=== PATIENT | female | born 1970 | race African-American/Black ===

== ENCOUNTER 2016-04-05 11:48 | Emergency (ER) | payer BC ==
[~2016-04-05 11:48] MED LIST: CYCL10TA2 PO; DIVA500T4 PO; FERR325T58 PO; HYDR-2666 PO; HYDR-971 PO; LAMO25TA5 PO; NAPR375T3 PO; NAPR500T PO; PANT40TA3 PO
[2016-04-05] MEDS ORDERED: IBUPROFEN 800 MG TABLET. PO ONE (13:00)
--- NOTE | 2016-04-05 13:07 | PHYS DOC ---
Past Medical History Past Medical History: Seizure Past Surgical History: Hysterectomy, Tubal ligation Alcohol Use: Rarely Drug Use: None Adult General Chief Complaint Chief Complaint: HYPERTENSION HPI HPI Patient is a 45 year old female who presents to the ED with multiple complaints. The patient went to work this morning and didn't feel well, they checked her blood pressure and it was 168/108 and they told her she needed to come get checked out. Patient states that this morning she had a headache on the left side of her head with some nausea, no vomiting. Her left side didn't feel right. She had tingling and numbness of her left hand and her left leg. She has pain in her left groin and down her left anterior thigh. She has had headaches exactly like this for quite a while, maybe a few months. She gets about 3 or 4 of them a week. This morning at work they gave HER-2 Tylenol which hasn't really helped. She was seen in the ED for this complaint in the past and was prescribed naproxen which also didn't really help. She works the 6 AM to 2 PM shift 5 days a week, sometimes works weekends and has a weekday off. Sometimes she eats breakfast before going to work and sometimes she doesn't. Sometimes she wakes up with a headache and sometimes it comes on later in the morning. There is nothing different or unusual about this particular headache today. Patient has no history of treated hypertension, she believes that for the last few months her blood pressure has been running a bit high although she has not been checking it regularly. 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 PCP Dr. Rees Review of Systems Review of Systems Constitutional: Denies fever or chills [] Eyes: Denies change in visual acuity, redness, or eye pain [] HENT: Denies nasal congestion or sore throat [] Respiratory: Denies cough or shortness of breath [] Cardiovascular: Denies chest pain GI: Nausea but no vomiting with headache as in history of present illness : Denies dysuria or hematuria [] Musculoskeletal: Diffuse aches and pains on the left side of her body as in history of present illness Integument: Denies rash or skin lesions [] Neurologic: As in history of present illness Current Medications Current Medications Current Medications Medications (Trade) Dose Ordered Sig/Columba Start Time Stop Time Status Last Admin Dose Admin Ibuprofen (Motrin) 800 mg 1X ONCE 04/05/16 13:00 04/05/16 13:01 Allergies Allergies Allergies Coded Allergies Type Severity Reaction Last Updated Verified No Known Drug Allergies 01/08/14 No Physical Exam Physical Exam Constitutional: Well developed, well nourished, no acute distress, non-toxic appearance. Watching TV, alert, mentating normally. HENT: Normocephalic, atraumatic, bilateral external ears normal, nose normal. [] Eyes: conjunctiva normal, no discharge. [] Neck: Normal range of motion, no stridor. [] Cardiovascular:Heart rate regular rhythm, no murmur [] Lungs & Thorax: Bilateral breath sounds clear to auscultation [] Skin: Warm, dry, no erythema, no rash. [] Extremities: No tenderness, no cyanosis, no clubbing, ROM intact, no edema. [] Neurologic: Alert and oriented X 3, normal motor function, normal sensory function, no focal deficits noted. No facial asymmetry. Speech normal. 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 Current Patient Data Vital Signs Vital Signs Date Time Temp Pulse Resp B/P Pulse Ox O2 Delivery O2 Flow Rate FiO2 04/05/16 11:59 98.5 93 18 157/91 100 Room Air 98.5 EKG EKG [] Radiology/Procedures Radiology/Procedures [] Course & Med Decision Making Course & Med Decision Making Pertinent Labs and Imaging studies reviewed. (See chart for details) 45-year-old female presents with a left-sided headache with some associated symptoms that make me think it might be a migraine. She has no lifelong history of migraines but has had these same headaches 3 or 4 times a week for several weeks or months now so I don't believe this is an emergency type of headache. I talked to her about trying "Excedrin Migraine" at the very onset of the headache as a trial. She really came today because she was found at work to have an elevated blood pressure and they made her come get checked out. After she rested in the ED her repeat blood pressure was 151/100. I discussed with her that that still a little elevated and if it stays elevated in and day out it does need to be treated but I will leave this to her primary care doctor. The patient has had trouble getting an appointment with her PCP so I called and made her an appointment for next Sunday which is her requested date since the day that she could have a ride from her daughter. [] Dragon Disclaimer Dragon Disclaimer This electronic medical record was generated, in whole or in part, using a voice recognition dictation system. Departure Departure Impression: Primary Impression: Elevated blood pressure reading with diagnosis of hypertension Additional Impression: Headache Disposition: 01 HOME, SELF-CARE Condition: STABLE Referrals: LYNN REES MD (PCP) Patient Instructions: General Headache Without Cause, [id number] Additional Instructions: As we discussed, and the description of your headache sounds like it might be a migraine. For this, I suggest that you try Excedrin Migraine while you are waiting to see your primary care doctor. Purchase Excedrin Migraine and keep it with you at all times. At the very onset of your headache, take 2 right away. It 's important to take them at the very onset of the headache. Drink plenty of fluids. Your blood pressure was high today but not so high that we need to immediately start treatment. As we discussed, every day that you work, check your blood pressure once or twice and keep a log to take with you when you see Dr. Rees next week. YOU have an appointment to see next April 12 at 1:00 PM. Please be 15 minutes early to that appointment. Make sure you take your blood pressure log with you. Problem Qualifiers ALFONSO GUADALUPE MD Apr 05, 2016 13:07
[2016-04-05 13:13] VITALS: BP 145/86
== END 2016-04-05 13:15 | disposition home or self-care (01) ==
LOC: ER 11:48
DX: I10 Essential (primary) hypertension (principal); R51 Headache; R20.2 Paresthesia of skin
CPT/HCPCS: 99282

== ENCOUNTER 2016-04-17 10:23 | Emergency (ER) | payer BC ==
[~2016-04-17] VITALS: Ht 160 cm; Wt 84.8 kg
[2016-04-17] MEDS ORDERED: ASPIRIN 81 MG TAB.CHEW PO ONE (12:30)
[2016-04-17] MEDS ORDERED: ONDANSETRON PF 4 MG/2 ML VIAL. IV ONE (12:30)
[2016-04-17] MEDS ORDERED: KETOROLAC 15 MG/ML VIAL. IV ONE (12:30)
--- NOTE | 2016-04-17 12:34 | ED.ADGEN ---
Past Medical History Past Medical History: Hypertension, Seizure Past Surgical History: Hysterectomy, Tubal ligation Alcohol Use: Rarely Drug Use: None Adult General Chief Complaint Chief Complaint: HEADACHE HPI HPI Patient is a 45 year old woman, with history of hypertension, seizure disorder which is controlled medication, migraine headaches, who presents to the emergency department with multiple complaints. Patient states that she initially was intending to go to outpatient radiology, but checked into the emergency department accidentally. She states that she was sent to get an x-ray of her hip by her primary care provider. She states however that she was experiencing chest pain and shortness of breath while at work today. 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 She states that her coat whole side hurts". Patient initially states is her right side, she states that her left side, and she has an x-ray prescription order for a left hip film with her from her primary care provider Dr. Avelar. Patient states that her headache that she is also complaining of is consistent with her previous migraines, located in her left side. She denies any injuries, any vision changes, states that she will occasionally have pain and numbness in her left upper extremity, and pain throughout her left lower extremity. No weakness. This is been going on for several months. She states that the chest pain that she spirits is located in her left chest, is sharp and stabbing in nature, and was evaluated previously by her primary care provider within EKG. She has not had a stress test or any blood work performed. states she also felt nauseous this morning. Recent travel or surgery, no history of DVT or PE, no swelling in her legs. She states that she began taking metoprolol recently for her blood pressure, currently her blood pressure is 139/ 83, she states that when she checked at the snf where she is employed, it was 150s over 100. Review of Systems Review of Systems Constitutional: Denies fever or chills. [] Eyes: Denies change in visual acuity. [] HENT: Denies nasal congestion or sore throat. [] Respiratory: Shortness breath, no cough. Cardiovascular: Chest pain, no edema. GI: Denies abdominal pain, nausea, vomiting, bloody stools or diarrhea. [] : Denies dysuria. [] Musculoskeletal: Denies back pain, complaining of left-sided pain. Integument: Denies rash. [] Neurologic: Denies headache, focal weakness or sensory changes. [] Endocrine: Denies polyuria or polydipsia. [] Lymphatic: Denies swollen glands. [] Psychiatric: Denies depression or anxiety. [] Current Medications Current Medications Current Medications Medications (Trade) Dose Ordered Sig/Columba Start Time Stop Time Status Last Admin Dose Admin Aspirin (Children'S Aspirin) 324 mg 1X ONCE 04/17/16 12:30 04/17/16 12:31 DC 04/17/16 12:53 324 MG Ketorolac Tromethamine (Toradol) 10 mg 1X ONCE 04/17/16 12:30 04/17/16 12:31 DC 04/17/16 12:52 10 MG Ondansetron HCl (Zofran) 4 mg 1X ONCE 04/17/16 12:30 04/17/16 12:31 DC 04/17/16 12:53 4 MG Allergies Allergies Allergies Coded Allergies Type Severity Reaction Last Updated Verified No Known Drug Allergies 01/08/14 No Physical Exam Physical Exam Constitutional: Well developed, well nourished, no acute distress, non-toxic appearance. [] HENT: Normocephalic, atraumatic, bilateral external ears normal, oropharynx moist, no oral exudates, nose normal. [] Eyes: PERRLA, EOMI, conjunctiva normal, no discharge. [] Neck: Normal range of motion, no tenderness, supple, no stridor. [] Cardiovascular:Heart rate regular rhythm, no murmur, S1, S2, rubs or gallops. Patient with reproduced chest wall tenderness across the anterior left chest wall. No bony point tenderness or crepitus. [] Lungs & Thorax: Bilateral breath sounds clear to auscultation, no wheezing, rhonchi, rales. [] Abdomen: Bowel sounds normal, soft, no rebound, rigidity, no guarding. No tenderness, no masses, no pulsatile masses. [] Skin: Warm, dry, no erythema, no rash. [] Back: No tenderness, no CVA tenderness. [] Extremities: No tenderness, no cyanosis, no clubbing, ROM intact, no edema. [] Negative Homans sign. Neurologic: Alert and oriented X 3, normal motor function, normal sensory function, no focal deficits noted. [] Psychologic: Affect normal, judgement normal, mood normal. [] Current Patient Data Vital Signs Vital Signs Date Time Temp Pulse Resp B/P Pulse Ox O2 Delivery O2 Flow Rate FiO2 04/17/16 13:20 82 20 137/90 96 04/17/16 10:35 98.2 Room Air 98.2 Lab Values Laboratory Tests Test 04/17/16 12:45 04/17/16 13:10 04/17/16 14:22 White Blood Count 14.5x10^3/uL (4.0-11.0) H Red Blood Count 4.99x10^6/uL (3.50-5.40) Hemoglobin 14.8g/dL (12.0-15.5) Hematocrit 44.6% (36.0-47.0) Mean Corpuscular Volume 89fL (79-100) Mean Corpuscular Hemoglobin 30pg (25-35) Mean Corpuscular Hemoglobin Concent 33g/dL (31-37) Red Cell Distribution Width 13.9% (11.5-14.5) Platelet Count 238x10^3/uL (140-400) Neutrophils (%) (Auto) 69% (31-73) Lymphocytes (%) (Auto) 22% (24-48) L Monocytes (%) (Auto) 7% (0-9) Eosinophils (%) (Auto) 1% (0-3) Basophils (%) (Auto) 1% (0-3) Neutrophils # (Auto) 10.0x10^3uL (1.8-7.7) H Lymphocytes # (Auto) 3.2x10^3/uL (1.0-4.8) Monocytes # (Auto) 1.1x10^3/uL (0.0-1.1) Eosinophils # (Auto) 0.1x10^3/uL (0.0-0.7) Basophils # (Auto) 0.1x10^3/uL (0.0-0.2) Sodium Level 142mmol/L (136-145) Potassium Level 4.5mmol/L (3.5-5.1) Chloride Level 105mmol/L (98-107) Carbon Dioxide Level 29mmol/L (21-32) Anion Gap 8 (6-14) Blood Urea Nitrogen 17mg/dL (7-20) Creatinine 1.0mg/dL (0.6-1.0) Estimated GFR (Cockcroft-Gault) 72.5 Glucose Level 85mg/dL (70-99) Calcium Level 10.3mg/dL (8.5-10.1) H Troponin I Quantitative < 0.017ng/mL (0.000-0.055) RH-Gxe-X-Type Natriuretic Peptide 62pg/mL (0-124) Lipase 194U/L (73-393) Urine Opiates Screen Neg (NEG) Urine Methadone Screen Neg (NEG) Urine Barbiturates Neg (NEG) Urine Phencyclidine Screen Neg (NEG) Urine Amphetamine/Methamphetamine Neg (NEG) Urine Benzodiazepines Screen Neg (NEG) Urine Cocaine Screen Neg (NEG) Urine Cannabinoids Screen Neg (NEG) Urine Ethyl Alcohol Neg (NEG) POC Troponin I 0.00ng/ml (<0.08) Laboratory Tests 04/17/16 12:45 Laboratory Tests 04/17/16 12:45 EKG EKG ECG: Sinus rhythm, heart rate 77 beats minute, axis deviation, QTC of 34, TX 18 , QRS of 78, no ST elevations or depressions, aside from left axis deviation, no other abnormalities identified. As interpreted by me. Radiology/Procedures Radiology/Procedures [] [facility] [address] [place] [address] IMAGING REPORT Signed PATIENT: PEDRO LUIS DELATORRE ACCOUNT: [id number] : 1970 LOCATION: ER AGE: 45 SEX: F EXAM STATUS: REG ER ORD. PHYSICIAN: MARISSA MCKEON DO REASON: CP PROCEDURE: PORTABLE CHEST 1V Indication: Chronic left chest pain. Hypertension. Technique: Upright portable chest radiograph was obtained. Comparison is from February 18, 2016. Findings: The lungs are clear. The cardiopulmonary silhouette is within normal limits. The bony structures are intact. Impression: No active pulmonary disease. DICTATED and SIGNED BY: GERALDINE CRAWLEY MD DATE: 04/17/16 1257 CC: MARISSA MCKEON DO; LYNN AVELAR MD ~ Course & Med Decision Making Course & Med Decision Making Pertinent Labs and Imaging studies reviewed. (See chart for details) Patient well-appearing the emergency department, initially there is some confusion, as the patient stated that she did intend to go to outpatient radiology but was not certain where to go, to receive the x-ray of her hip. However for discussion, she would like additional evaluation of her chest pain which she states has been coming and going over the past several months, and was evaluated by her primary care provider as stated, but she has not received any blood work, or additional cardiology follow-up aside from a EKG. She states that she did experience episode of increased work of breathing and chest pain this morning, along with hypertension when she checked her blood pressure at her place of employment. Is experiencing no symptoms at this time aside from her chronic left-sided pain as described. Patient received ECG, laboratory studies in the ED, including a repeat troponin at 3 hours, both were negative, patient's ECG showed left axis deviation but no other concerning findings, chest x-rays unremarkable as was the rest of her blood work. Evidence of acutely concerning findings, I do not believe the patient's symptoms are consistent with a concerning pulmonary or cardiac etiology. On reevaluation, patient's headache is resolved. I did discuss findings as above with her primary care provider, Dr. Avelar, and with the patient, all are in agreement with the plan for the patient to follow-up in the outpatient setting for additional evaluation, and to proceed to the outpatient radiology testing site for x-ray of her hip. Patient ambulating without difficulty upon exiting the ED with plan as stated. Dragon Disclaimer Dragon Disclaimer This electronic medical record was generated, in whole or in part, using a voice recognition dictation system. Departure Impression: Primary Impression: Chest pain Additional Impression: Headache Disposition: 01 HOME, SELF-CARE Condition: IMPROVED Problem Qualifiers MARISSA MCKEON DO Apr 17, 2016 12:34
--- NOTE | 2016-04-17 12:56 | RAD ---
Indication: Chronic left chest pain. Hypertension. Technique: Upright portable chest radiograph was obtained. Comparison is from February 18, 2016. Findings: The lungs are clear. The cardiopulmonary silhouette is within normal limits. The bony structures are intact. Impression: No active pulmonary disease.
[2016-04-17 13:20] VITALS: BP 137/90
[2016-04-17 13:27] LABS: BASO # 0.1 x10^3/uL (0.0-0.2); BASO % 1 % (0-3); EOS % 1 % (0-3); HEMATOCRIT 44.6 % (36.0-47.0); HEMOGLOBIN 14.8 g/dL (12.0-15.5); LYMPH # 3.2 x10^3/uL (1.0-4.8); LYMPH % 22 % (24-48); MEAN CORPUSCULAR HEMOGLOBIN 30 pg (25-35); MEAN CORPUSCULAR HGB CONC 33 g/dL (31-37); MEAN CORPUSCULAR VOLUME 89 fL (79-100); MONO % 7 % (0-9); NEUT % 69 % (31-73); PLATELET COUNT 238 x10^3/uL (140-400); RED BLOOD COUNT 4.99 x10^6/uL (3.50-5.40); RED CELL DISTRIBUTION WIDTH 13.9 % (11.5-14.5); WHITE BLOOD COUNT 14.5 x10^3/uL (4.0-11.0)
[2016-04-17 13:28] LABS: CALCIUM 10.3 mg/dL (8.5-10.1); GFR 72.5; POTASSIUM 4.5 mmol/L (3.5-5.1)
[2016-04-17 13:31] LABS: BARBITURATES NEG (NEG); BENZODIAZEPINES NEG (NEG); CANNABINOIDS NEG (NEG); COCAINE NEG (NEG); METHADONE NEG (NEG); OPIATES NEG (NEG); PHENCYCLIDINE NEG (NEG)
[2016-04-17 13:32] LABS: ETHANOL, URINE NEG (NEG)
--- NOTE | 2016-04-17 13:36 | EKG ---
[facility] [address] [place] [address] Test Date: 2016-04-17 Test Time: 12:45:31 Pat Name: PEDRO LUIS DELATORRE Department: Room: Gender: F Senior Advisory: : 1970 Requested By: MARISSA MCKEON Order Number: [id number] Reading MD: Chani Craft Measurements Intervals Banks Rate: 77 P: 5 GA: 158 QRS: -6 QRSD: 78 T: 0 QT: 338 QTc: 384 Interpretive Statements SINUS RHYTHM LEFTWARD AXIS OTHERWISE NORMAL ECG RI6.01 Unconfirmed report Compared to ECG 02/18/2016 14:40:00 Left-axis deviation now present Electronically Signed On 04-19-2016 10:56:42 CDT by Chani Craft
== END 2016-04-17 14:57 | disposition home or self-care (01) ==
LOC: ER 10:23
DX: R07.89 Other chest pain (principal); R51 Headache; R06.02 Shortness of breath; R20.0 Anesthesia of skin; R11.0 Nausea; M79.605 Pain in left leg; I10 Essential (primary) hypertension; G40.909 Epilepsy, unspecified, not intractable, without status epilepticus; G43.909 Migraine, unspecified, not intractable, without status migrainosus
CPT/HCPCS: 36415; 71010; 80048; 83690; 83880; 84484; 85027; 93005; 96374; 96375; 99285; G0481; J1885; J2405

== ENCOUNTER → 2016-04-17 | Outpatient (CLI) | payer BC ==
[2016-04-17 13:20] VITALS: BP 137/90
--- NOTE | 2016-04-17 16:18 | RAD ---
Lumbar spine, 5 views, 04/17/2016: History: Low back and hip pain The lateral view is suboptimal due to obliquity of patient positioning. No fracture or dislocation is identified. There are minimal scattered marginal spurs. There are mild to moderate degenerative changes involving facet joints bilaterally in the lower lumbar spine. There is no evidence of spondylolysis. The paraspinous soft tissues are unremarkable. IMPRESSION: 1. Mild to moderate degenerative change as described above. 2. No acute abnormality is detected.
--- NOTE | 2016-04-17 16:18 | RAD ---
Left hip, 2 views, 04/17/2016: History: Low back and hip pain No fracture or dislocation is identified. There is minimal narrowing of the left hip joint with minimal marginal spurring. The periarticular soft tissues are unremarkable. IMPRESSION: 1. Minimal degenerative change at the left hip joint. 2. No acute abnormality is detected.
== END | disposition home or self-care (01) ==
LOC: RAD 15:09
PROVIDERS: ATTEND Internal Medicine
DX: M47.896 Other spondylosis, lumbar region (principal); M25.552 Pain in left hip
CPT/HCPCS: 72110; 73502

== ENCOUNTER 2016-12-21 11:05 | Emergency (ER) | payer BC ==
[~2016-12-21] VITALS: Ht 160 cm; Wt 78.5 kg
[~2016-12-21 11:05] MED LIST changes: -HYDR-2666 PO; +HYDR-2758 PO; +NAPR-683 PO; +NAPR-695 PO; -NAPR375T3 PO; -NAPR500T PO
--- NOTE | 2016-12-21 11:55 | PHYS DOC ---
Past Medical History Past Medical History: Hypertension, Seizure Past Surgical History: Hysterectomy, Tubal ligation Alcohol Use: Rarely Drug Use: None Adult General Chief Complaint Chief Complaint: DIZZY/LIGHT HEADED HPI HPI Patient is a 46 year old female to the emergency department stating she has been having elevated blood pressures for the last 2 days. She states that she has also been having some numbness and tingling into bilateral arms. Patient does state that she has out of her blood pressure medicine since October. She does have a primary care physician which she can follow-up with however she tried to call them yesterday and today for blood pressure medicine and was unable to get a hold of anybody. Patient states her blood pressure was 149/102. She denies any chest pain or discomfort. She does state that she has some left upper back pain and discomfort. She denies dizziness however she states that that was yesterday. States that her son has for a cardiac reason in the early age of 21. Review of Systems Review of Systems Constitutional: Denies fever or chills [] Eyes: Denies change in visual acuity, redness, or eye pain [] HENT: Denies nasal congestion or sore throat [] Respiratory: Denies cough or shortness of breath [] Cardiovascular: No additional information not addressed in HPI [] GI: Denies abdominal pain, nausea, vomiting, bloody stools or diarrhea [] : Denies dysuria or hematuria [] Musculoskeletal: upper left back pain denies joint pain [] Integument: Denies rash or skin lesions [] Neurologic: Denies headache, focal weakness. C/o numbness and tingling in bilateral hands. Endocrine: Denies polyuria or polydipsia [] All other systems were reviewed and found to be within normal limits, except as documented in this note. Current Medications Current Medications Current Medications Medications (Trade) Dose Ordered Sig/[place] Start Time Stop Time Status Last Admin Dose Admin Metoprolol Succinate (Toprol Xl) 25 mg 1X ONCE 12/21/16 12:15 12/21/16 12:16 DC 12/21/16 12:28 50 MG Allergies Allergies Allergies Coded Allergies Type Severity Reaction Last Updated Verified No Known Drug Allergies 01/08/14 No Physical Exam Physical Exam Constitutional: Well developed, well nourished, no acute distress, non-toxic appearance. [] HENT: Normocephalic, atraumatic, bilateral external ears normal, oropharynx moist, no oral exudates, nose normal. [] Eyes: PERRLA, EOMI, conjunctiva normal, no discharge. [] Neck: Normal range of motion, no tenderness, supple, no stridor. [] Cardiovascular:Heart rate regular rhythm, no murmur [] Lungs & Thorax: Bilateral breath sounds clear to auscultation [] [] Skin: Warm, dry, no erythema, no rash. [] Back: left upper back tenderness noted on palpation Extremities: No tenderness, no cyanosis, no clubbing, ROM intact, no edema. [] Neurologic: Alert and oriented X 3, normal motor function, normal sensory function, no focal deficits noted. Psychologic: Affect normal, judgement normal, mood normal. [] Current Patient Data Vital Signs Vital Signs Date Time Temp Pulse Resp B/P (MAP) Pulse Ox O2 Delivery O2 Flow Rate FiO2 12/21/16 12:29 91 18 98 12/21/16 12:28 122/87 12/21/16 11:21 98.1 Room Air 98.1 Lab Values Laboratory Tests Test 12/21/16 11:40 12/21/16 11:50 White Blood Count 12.9 x10^3/uL (4.0-11.0) H Red Blood Count 4.63 x10^6/uL (3.50-5.40) Hemoglobin 13.6 g/dL (12.0-15.5) Hematocrit 41.7 % (36.0-47.0) Mean Corpuscular Volume 90 fL (79-100) Mean Corpuscular Hemoglobin 29 pg (25-35) Mean Corpuscular Hemoglobin Concent 33 g/dL (31-37) Red Cell Distribution Width 14.3 % (11.5-14.5) Platelet Count 219 x10^3/uL (140-400) Neutrophils (%) (Auto) 63 % (31-73) Lymphocytes (%) (Auto) 29 % (24-48) Monocytes (%) (Auto) 6 % (0-9) Eosinophils (%) (Auto) 1 % (0-3) Basophils (%) (Auto) 1 % (0-3) Neutrophils # (Auto) 8.2 x10^3uL (1.8-7.7) H Lymphocytes # (Auto) 3.8 x10^3/uL (1.0-4.8) Monocytes # (Auto) 0.7 x10^3/uL (0.0-1.1) Eosinophils # (Auto) 0.1 x10^3/uL (0.0-0.7) Basophils # (Auto) 0.2 x10^3/uL (0.0-0.2) Sodium Level 140 mmol/L (136-145) Potassium Level 3.7 mmol/L (3.5-5.1) Chloride Level 104 mmol/L (98-107) Carbon Dioxide Level 26 mmol/L (21-32) Anion Gap 10 (6-14) Blood Urea Nitrogen 13 mg/dL (7-20) Creatinine 0.8 mg/dL (0.6-1.0) Estimated GFR (Cockcroft-Gault) 93.4 BUN/Creatinine Ratio 16 (6-20) Glucose Level 76 mg/dL (70-99) Calcium Level 9.6 mg/dL (8.5-10.1) Total Bilirubin 0.2 mg/dL (0.2-1.0) Aspartate Amino Transferase (AST) 15 U/L (15-37) Alanine Aminotransferase (ALT) 14 U/L (14-59) Alkaline Phosphatase 49 U/L (46-116) Troponin I Quantitative < 0.017 ng/mL (0.000-0.055) Total Protein 7.7 g/dL (6.4-8.2) Albumin 3.2 g/dL (3.4-5.0) L Albumin/Globulin Ratio 0.7 (1.0-1.7) L Urine Collection Type Void Urine Color Yellow Urine Clarity Clear Urine pH 7.0 Urine Specific [place] 1.020 Urine Protein Negative mg/dL (NEG-TRACE) Urine Glucose (UA) Negative mg/dL (NEG) Urine Ketones (Stick) Negative mg/dL (NEG) Urine Blood Negative (NEG) Urine Nitrite Negative (NEG) Urine Bilirubin Negative (NEG) Urine Urobilinogen Dipstick 0.2 mg/dL (0.2 mg/dL) Urine Leukocyte Esterase Trace (NEG) Urine RBC Occ /HPF (0-2) Urine WBC 1-4 /HPF (0-4) Urine Squamous Epithelial Cells Mod /LPF Urine Bacteria Few /HPF (0-FEW) Laboratory Tests 12/21/16 11:40 Laboratory Tests 12/21/16 11:40 EKG EKG EKG was completed on 1125 heart rate 83 sinus rhythm noted no STEMI noted per Dr Parikh[] Radiology/Procedures Radiology/Procedures [][facility] [address] [place] [address] IMAGING REPORT Signed PATIENT: PEDRO LUIS DELATORRE ACCOUNT: [id number] : 1970 LOCATION: ER AGE: 46 SEX: F EXAM STATUS: REG ER ORD. PHYSICIAN: MARCY RIDLEY APRN REASON: dizziness with elevated BP not taking medications PROCEDURE: CT HEAD WO CONTRAST CT of the head without contrast, 12/21/2016: History: Dizziness, hypertension The ventricles are within normal limits in size. There is no shift of the midline structures. There is no evidence of acute intracranial hemorrhage or mass effect. IMPRESSION: No significant abnormality is detected. PQRS Compliance Statement: One or more of the following individualized dose reduction techniques were utilized for this examination: 1. Automated exposure control 2. Adjustment of the mA and/or kV according to patient size 3. Use of iterative reconstruction technique DICTATED and SIGNED BY: RUBY PATEL MD DATE: 12/21/16 8284 CC: MARCY RIDLEY APRN; LYNN AVELAR MD; NON,STAFF ~ Course & Med Decision Making Course & Med Decision Making Pertinent Labs and Imaging studies reviewed. (See chart for details) EKG was within normal limits. CT scan of the head was normal. CBC, CMP, urinalysis was within normal limits. Patient was provided with metoprolol 25 mg here in the emergency department. Her blood pressure is currently 122/89. Patient will be discharged home with a prescription for metoprolol. She was instructed to follow-up with her primary care physician Dr. Man. Patient will be provided with a work noted for 1 day. I've spoken with the patient and/or caregivers. I've explained the patient's condition, diagnosis and treatment plan based on information available to me at this time. I've answered the patient's and/or caregivers questions and addressed any concerns. The patient and/or caregivers have a good understanding the patient's diagnosis, condition and treatment plan as can be expected at this point. Vital signs have been stabilized. The patient's condition is stable for discharge from the emergency department. The patient will pursue further outpatient evaluation with her primary care provider or other designated consulting physician as outlined in the discharge instructions. Patient and/or caregivers are agreeable to this plan of care and follow-up instructions have been explained in detail. The patient and/or caregivers have received these instructions in written format and expressed understanding of these discharge instructions. The patient and her caregivers are aware that if any significant change in condition or worsening of symptoms should prompt him to immediately return to this of the closest emergency department. If an emergent department is not readily available I would encourage him to call 911. [] Dragon Disclaimer Dragon Disclaimer This electronic medical record was generated, in whole or in part, using a voice recognition dictation system. Departure Departure Impression: Primary Impression: Elevated blood pressure reading with diagnosis of hypertension Disposition: HOME, SELF-CARE Condition: STABLE Referrals: LYNN AVELAR MD (PCP) Patient Instructions: Hypertension Additional Instructions: Activity as tolerated Medication as prescribed Tylenol or Ibuprofen for pain Followup with primary care provider in 3-5 days Return to emergency department as needed for signs and symptoms that become worse. Scripts Metoprolol Succinate (METOPROLOL SUCCINATE ( XL )) 25 Mg Tab.er.24h 25 MG PO DAILY for FOR HYPERTENSION, #30 TAB 0 Refills Prov: MARCY RIDLEY APRN 12/21/16 MARCY RIDLEY APRN Dec 21, 2016 11:55
[2016-12-21] MEDS ORDERED: METOPROLOL SUCC 24HR ER 25 MG TAB.ER.24H. PO ONE (12:00)
[2016-12-21 12:02] LABS: BASO # 0.2 x10^3/uL (0.0-0.2); BASO % 1 % (0-3); EOS % 1 % (0-3); HEMATOCRIT 41.7 % (36.0-47.0); HEMOGLOBIN 13.6 g/dL (12.0-15.5); LYMPH # 3.8 x10^3/uL (1.0-4.8); LYMPH % 29 % (24-48); MEAN CORPUSCULAR HEMOGLOBIN 29 pg (25-35); MEAN CORPUSCULAR HGB CONC 33 g/dL (31-37); MEAN CORPUSCULAR VOLUME 90 fL (79-100); MONO % 6 % (0-9); NEUT % 63 % (31-73); PLATELET COUNT 219 x10^3/uL (140-400); RED BLOOD COUNT 4.63 x10^6/uL (3.50-5.40); RED CELL DISTRIBUTION WIDTH 14.3 % (11.5-14.5); WHITE BLOOD COUNT 12.9 x10^3/uL (4.0-11.0)
[2016-12-21 12:04] LABS: BILIRUBIN,URINE NEGATIVE (NEG); GLUCOSE,URINE NEGATIVE (NEG); NITRITE,URINE NEGATIVE (NEG); PROTEIN,URINE NEGATIVE (NEG-TRACE); UROBILINOGEN,URINE 0.2 mg/dL (0.2 mg/dL)
[2016-12-21 12:13] LABS: SQUAMOUS EPITHELIAL CELL,UR MOD /LPF
[2016-12-21 12:14] LABS: CALCIUM 9.6 mg/dL (8.5-10.1); CREATININE 0.8 mg/dL (0.6-1.0); GFR 93.4; POTASSIUM 3.7 mmol/L (3.5-5.1)
[2016-12-21 12:14] LABS: BACTERIA,URINE FEW /HPF (0-FEW); RBC,URINE OCC /HPF (0-2)
[2016-12-21] MEDS ORDERED: METOPROLOL SUCC 24HR ER 50 MG TAB.ER.24H. PO ONE (12:15)
[2016-12-21 12:20] LABS: ALBUMIN 3.2 g/dL (3.4-5.0); ALBUMIN/GLOBULIN RATIO 0.7 (1.0-1.7); TOTAL BILIRUBIN 0.2 mg/dL (0.2-1.0); TOTAL PROTEIN 7.7 g/dL (6.4-8.2)
--- NOTE | 2016-12-21 12:56 | EKG ---
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
--- NOTE | 2016-12-21 13:13 | RAD ---
CT of the head without contrast, 12/21/2016: History: Dizziness, hypertension The ventricles are within normal limits in size. There is no shift of the midline structures. There is no evidence of acute intracranial hemorrhage or mass effect. IMPRESSION: No significant abnormality is detected. PQRS Compliance Statement: One or more of the following individualized dose reduction techniques were utilized for this examination: 1. Automated exposure control 2. Adjustment of the mA and/or kV according to patient size 3. Use of iterative reconstruction technique
[2016-12-21] MEDS ORDERED: METO-239 PO (13:34)
[2016-12-21] MEDS ORDERED: ACETAMINOPHEN 325 MG TABLET. PO ONE (13:45)
[2016-12-21 14:03] VITALS: BP 134/85
== END 2016-12-21 14:05 | disposition home or self-care (01) ==
LOC: ER 11:05
DX: I10 Essential (primary) hypertension (principal); M54.6 Pain in thoracic spine
CPT/HCPCS: 36415; 70450; 80053; 81001; 84484; 85025; 87086; 93005; 99285-25

== ENCOUNTER 2017-09-07 10:02 | Emergency (ER) | payer BC ==
[2017-09-07 11:00] LABS: ADD MAN DIFF? NO
[2017-09-07 11:09] LABS: BASO # 0.2 x10^3/uL (0.0-0.2); BASO % 1 % (0-3); EOS # 0.1 x10^3/uL (0.0-0.7); EOS % 1 % (0-3); HEMATOCRIT 40.6 % (36.0-47.0); HEMOGLOBIN 13.6 g/dL (12.0-15.5); LYMPH # 2.7 x10^3/uL (1.0-4.8); LYMPH % 21 % (24-48); MEAN CORPUSCULAR HEMOGLOBIN 29 pg (25-35); MEAN CORPUSCULAR HGB CONC 33 g/dL (31-37); MEAN CORPUSCULAR VOLUME 87 fL (79-100); MONO # 0.8 x10^3/uL (0.0-1.1); MONO % 6 % (0-9); NEUT # 9.4 x10^3uL (1.8-7.7); NEUT % 71 % (31-73); PLATELET COUNT 220 x10^3/uL (140-400); RED BLOOD COUNT 4.65 x10^6/uL (3.50-5.40); RED CELL DISTRIBUTION WIDTH 14.8 % (11.5-14.5); WHITE BLOOD COUNT 13.2 x10^3/uL (4.0-11.0)
[2017-09-07] MEDS: KETOROLAC 30 MG/ML INJ. IV (11:26)
[2017-09-07 12:02] LABS: ANION GAP 6 (6-14); BLOOD UREA NITROGEN 16 mg/dL (7-20); CALCIUM 9.7 mg/dL (8.5-10.1); CARBON DIOXIDE 27 mmol/L (21-32); CHLORIDE 104 mmol/L (98-107); CREATININE 0.9 mg/dL (0.6-1.0); GFR 81.2; GLUCOSE 80 mg/dL (70-99); POTASSIUM 4.7 mmol/L (3.5-5.1); SODIUM 137 mmol/L (136-145)
[2017-09-07 12:03] LABS: TROPONINI < 0.017 ng/mL (0.000-0.055)
== END 2017-09-07 13:02 | disposition home or self-care (01) ==
LOC: ER 10:02
DX: R07.89 Other chest pain (principal); G89.29 Other chronic pain; M25.511 Pain in right shoulder; I10 Essential (primary) hypertension; Z90.710 Acquired absence of both cervix and uterus; Z98.51 Tubal ligation status
CPT/HCPCS: 36415; 71046; 73030; 80048; 84484; 85025; 93005; 96374; 99285-25; J1885

== ENCOUNTER 2017-10-21 13:45 | Emergency (ER) | payer BC ==
[~2017-10-21] VITALS: Ht 160 cm; Wt 81.6 kg
[~2017-10-21 13:45] MED LIST changes: +METO-239 PO
[2017-10-21 15:08] VITALS: BP 153/88
--- NOTE | 2017-10-21 15:41 | PHYS DOC ---
Past Medical History Past Medical History: No Pertinent History Additional Past Medical Histor: CHRONIC PAIN Past Surgical History: No Surgical History Alcohol Use: Occasionally Drug Use: None Adult General Chief Complaint Chief Complaint: Neck Pain HPI HPI Patient is a 47 year old with right shoulder pain for one year and a rash to bilateral arms. Patient reports increased pain with range of motion. right hand dominant. Denies any numbness, tingling, or injury Review of Systems Review of Systems Constitutional: Denies fever or chills [] Eyes: Denies change in visual acuity, redness, or eye pain [] HENT: Denies nasal congestion or sore throat [] Respiratory: Denies cough or shortness of breath [] Cardiovascular: No additional information not addressed in HPI [] GI: Denies abdominal pain, nausea, vomiting, bloody stools or diarrhea [] : Denies dysuria or hematuria [] Musculoskeletal: Denies back pain or joint pain [] Integument: Denies rash or skin lesions [] Neurologic: Denies headache, focal weakness or sensory changes [] Endocrine: Denies polyuria or polydipsia [] All other systems were reviewed and found to be within normal limits, except as documented in this note. Allergies Allergies Allergies Coded Allergies Type Severity Reaction Last Updated Verified No Known Drug Allergies 01/08/14 No Physical Exam Physical Exam Constitutional: Well developed, well nourished, no acute distress, non-toxic appearance. [] HENT: Normocephalic, atraumatic, bilateral external ears normal, oropharynx moist, no oral exudates, nose normal. [] Eyes: PERRLA, EOMI, conjunctiva normal, no discharge. [] Neck: Normal range of motion, no tenderness, supple, no stridor. [] Cardiovascular:Heart rate regular rhythm, no murmur [] Lungs & Thorax: Bilateral breath sounds clear to auscultation [] Abdomen: Bowel sounds normal, soft, no tenderness, no masses, no pulsatile masses. [] Skin: Warm, dry, no erythema, no rash. [] Back: No tenderness, no CVA tenderness. [] Extremities: No tenderness, no cyanosis, no clubbing, ROM intact, no edema. [] Neurologic: Alert and oriented X 3, normal motor function, normal sensory function, no focal deficits noted. [] Psychologic: Affect normal, judgement normal, mood normal. [] Current Patient Data Vital Signs Vital Signs Date Time Temp Pulse Resp B/P (MAP) Pulse Ox O2 Delivery O2 Flow Rate FiO2 10/21/17 15:08 98.4 84 20 153/88 (109) Room Air 98.4 EKG EKG [] Radiology/Procedures Radiology/Procedures [] Course & Med Decision Making Course & Med Decision Making Pertinent Labs and Imaging studies reviewed. (See chart for details) [] Dragon Disclaimer Dragon Disclaimer This electronic medical record was generated, in whole or in part, using a voice recognition dictation system. Departure Departure Impression: Primary Impression: Right shoulder pain Additional Impression: Contact dermatitis Disposition: HOME, SELF-CARE Condition: STABLE Referrals: LYNN AVELAR MD (PCP) JING GARDNER MD Patient Instructions: Contact Dermatitis, [id number], Shoulder Pain Additional Instructions: Wear sling for comfort. Follow up with ortho. Also follow up with primary in 1- 2 days. Take medications as prescribed. Return if problems or concerns. Scripts Prednisone (PREDNISONE) 50 Mg Tablet 50 MG PO DAILY for 5 Days, #5 TAB Prov: RISA FRANKLIN APRN 10/21/17 Diclofenac Sodium (VOLTAREN-XR) 100 Mg Tab.er.24h 1 TAB PO DAILY for prn pain, #20 TAB 0 Refills Prov: RISA FRANKLIN APRN 10/21/17 Problem Qualifiers Primary Impression: Right shoulder pain Chronicity: chronic Qualified Codes: M25.511 - Pain in right shoulder; G89.29 - Other chronic pain Additional Impression: Contact dermatitis Contact dermatitis type: unspecified Contact dermatitis trigger: unspecified trigger Qualified Codes: L25.9 - Unspecified contact dermatitis, unspecified cause RISA FRANKLIN APRN Oct 21, 2017 15:41
[2017-10-21] MEDS ORDERED: DICL100T PO (15:49)
[2017-10-21] MEDS ORDERED: PRED50TA PO (15:49)
== END 2017-10-21 16:20 | disposition home or self-care (01) ==
LOC: ER 13:45
DX: L25.9 Unspecified contact dermatitis, unspecified cause (principal); M25.511 Pain in right shoulder; G89.29 Other chronic pain
CPT/HCPCS: 99283

== ENCOUNTER 2018-03-29 14:07 | Emergency (ER) | payer BC ==
[~2018-03-29] VITALS: Ht 160 cm; Wt 79.8 kg
[~2018-03-29 14:07] MED LIST changes: +DICL100T PO; -HYDR-2758 PO; +HYDR-2761 PO; +HYDR-3164 PO; -HYDR-971 PO; +PRED50TA PO
[2018-03-29] MEDS ORDERED: PROCHLORPERAZINE 10 MG/2 ML VIAL. IV ONE (14:30)
[2018-03-29] MEDS ORDERED: KETOROLAC 15 MG/ML VIAL. IV ONE (14:30)
[2018-03-29] MEDS ORDERED: diphenhydrAMINE 50 MG/ML VIAL IVP ONE (14:30)
--- NOTE | 2018-03-29 14:42 | EKG ---
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 Electronically Signed On 04-01-2018 10:49:34 BALLISTICS EXPERT by Timmy Rojas
[2018-03-29 14:53] LABS: BASO # 0.1 x10^3/uL (0.0-0.2); BASO % 1 % (0-3); EOS % 0 % (0-3); HEMATOCRIT 40.8 % (36.0-47.0); HEMOGLOBIN 13.2 g/dL (12.0-15.5); LYMPH # 2.4 x10^3/uL (1.0-4.8); LYMPH % 21 % (24-48); MEAN CORPUSCULAR HEMOGLOBIN 28 pg (25-35); MEAN CORPUSCULAR HGB CONC 32 g/dL (31-37); MEAN CORPUSCULAR VOLUME 87 fL (79-100); MONO # 0.8 x10^3/uL (0.0-1.1); MONO % 7 % (0-9); NEUT # 7.9 x10^3uL (1.8-7.7); NEUT % 70 % (31-73); PLATELET COUNT 227 x10^3/uL (140-400); RED BLOOD COUNT 4.71 x10^6/uL (3.50-5.40); WHITE BLOOD COUNT 11.4 x10^3/uL (4.0-11.0)
[2018-03-29 15:07] LABS: CALCIUM 9.6 mg/dL (8.5-10.1); CREATININE 1.1 mg/dL (0.6-1.0); GFR 64.4; POTASSIUM 3.8 mmol/L (3.5-5.1)
--- NOTE | 2018-03-29 15:11 | PHYS DOC ---
Past Medical History Past Medical History: Hypertension, Migraines, Seizure Additional Past Medical Histor: CHRONIC PAIN Past Surgical History: Hysterectomy, Tubal ligation Alcohol Use: Occasionally Drug Use: Marijuana Adult General Chief Complaint Chief Complaint: HEADACHE HPI HPI Patient is a 47 year old female presents the emergency room with chief complaint of headache described as intermittent throbbing front of the head she' s had a history of migraines this feels similar to that in addition she is worried because she has numbness as well as shooting pain from her shoulder down to her hand on the left check she hasn't on long-standing basis but it seems worse over the last 3 weeks she says she is working with her primary care doctor. She also was no halitosis can take because her daughter has to be at work by 5:00. Patient denies chest pain or shortness of breath no fever no recent trauma or injury he just the pain and the numbness. Trying agents at home with minimal relief Review of Systems Review of Systems Constitutional: Denies fever or chills [] Eyes: Denies change in visual acuity, redness, or eye pain [] HENT: Denies nasal congestion or sore throat [] Respiratory: Denies cough or shortness of breath [] Cardiovascular: No additional information not addressed in HPI [] GI: Denies abdominal pain, nausea, vomiting, bloody stools or diarrhea [] : Denies dysuria or hematuria [] Musculoskeletal: Integument: Denies rash or skin lesions [] Neurologic: Endocrine: Denies polyuria or polydipsia [] All other systems were reviewed and found to be within normal limits, except as documented in this note. Current Medications Current Medications Current Medications Medications (Trade) Dose Ordered Sig/[place] Start Time Stop Time Status Last Admin Dose Admin Diphenhydramine HCl (Benadryl) 25 mg 1X ONCE 03/29/18 14:30 03/29/18 14:31 DC 03/29/18 14:53 25 MG Ketorolac Tromethamine (Toradol 15mg Vial) 15 mg 1X ONCE 03/29/18 14:30 03/29/18 14:31 DC 03/29/18 14:53 15 MG Prochlorperazine Edisylate (Compazine) 10 mg 1X ONCE 03/29/18 14:30 03/29/18 14:31 DC 03/29/18 14:53 10 MG Allergies Allergies Allergies Coded Allergies Type Severity Reaction Last Updated Verified No Known Drug Allergies 01/08/14 No Physical Exam Physical Exam Constitutional: Well developed, well nourished, no acute distress, non-toxic appearance. [] HENT: Normocephalic, atraumatic, bilateral external ears normal, oropharynx moist, no oral exudates, nose normal. [] Eyes: PERRLA, EOMI, conjunctiva normal, no discharge. [] Neck: Normal range of motion, no tenderness, supple, no stridor. [] Cardiovascular:Heart rate regular rhythm, no murmur [] Lungs & Thorax: Bilateral breath sounds clear to auscultation [] Abdomen: Bowel sounds normal, soft, no tenderness, no masses, no pulsatile masses. [] Skin: Warm, dry, no erythema, no rash. [] Back: There is reproducible trapezius tenderness noted to the left shoulder back area. Extremities: No tenderness, no cyanosis, no clubbing, ROM intact, no edema. [] Neurologic: Alert and oriented X 3, normal motor function, normal sensory function, no focal deficits noted. []Subtle breakaway weakness noted in the left upper extremity however 5 out of 5 with resistance testing while distracted Sensation is slightly reduced to light touch in the left hand. Finger-nose- finger intact Psychologic: Affect normal, judgement normal, mood normal. [] Current Patient Data Vital Signs Vital Signs Date Time Temp Pulse Resp B/P (MAP) Pulse Ox O2 Delivery O2 Flow Rate FiO2 03/29/18 15:18 78 98 03/29/18 14: 98.3 16 138/85 (102) Room Air 98.3 Lab Values Laboratory Tests Test 03/29/18 14:18 03/29/18 14:28 03/29/18 14:43 POC Urine HCG, Qualitative Hcg negative (Negative) Glucose (Fingerstick) 92 mg/dL (70-99) White Blood Count 11.4 x10^3/uL (4.0-11.0) H Red Blood Count 4.71 x10^6/uL (3.50-5.40) Hemoglobin 13.2 g/dL (12.0-15.5) Hematocrit 40.8 % (36.0-47.0) Mean Corpuscular Volume 87 fL (79-100) Mean Corpuscular Hemoglobin 28 pg (25-35) Mean Corpuscular Hemoglobin Concent 32 g/dL (31-37) Red Cell Distribution Width 14.0 % (11.5-14.5) Platelet Count 227 x10^3/uL (140-400) Neutrophils (%) (Auto) 70 % (31-73) Lymphocytes (%) (Auto) 21 % (24-48) L Monocytes (%) (Auto) 7 % (0-9) Eosinophils (%) (Auto) 0 % (0-3) Basophils (%) (Auto) 1 % (0-3) Neutrophils # (Auto) 7.9 x10^3uL (1.8-7.7) H Lymphocytes # (Auto) 2.4 x10^3/uL (1.0-4.8) Monocytes # (Auto) 0.8 x10^3/uL (0.0-1.1) Eosinophils # (Auto) 0.0 x10^3/uL (0.0-0.7) Basophils # (Auto) 0.1 x10^3/uL (0.0-0.2) Sodium Level 144 mmol/L (136-145) Potassium Level 3.8 mmol/L (3.5-5.1) Chloride Level 106 mmol/L (98-107) Carbon Dioxide Level 29 mmol/L (21-32) Anion Gap 9 (6-14) Blood Urea Nitrogen 14 mg/dL (7-20) Creatinine 1.1 mg/dL (0.6-1.0) H Estimated GFR (Cockcroft-Gault) 64.4 BUN/Creatinine Ratio 13 (6-20) Glucose Level 98 mg/dL (70-99) Calcium Level 9.6 mg/dL (8.5-10.1) Total Bilirubin 0.3 mg/dL (0.2-1.0) Aspartate Amino Transferase (AST) 12 U/L (15-37) L Alanine Aminotransferase (ALT) 11 U/L (14-59) L Alkaline Phosphatase 42 U/L (46-116) L Troponin I Quantitative < 0.017 ng/mL (0.000-0.055) Total Protein 7.3 g/dL (6.4-8.2) Albumin 3.1 g/dL (3.4-5.0) L Albumin/Globulin Ratio 0.7 (1.0-1.7) L Laboratory Tests 03/29/18 14:43 Laboratory Tests 03/29/18 14:43 EKG EKG [] Interpretation Time: EKG shows a probable sinus rhythm poor baseline rate 77 no STEMI seen intervals are normal interpreted by me the time of encounter Radiology/Procedures Radiology/Procedures [] Course & Med Decision Making Course & Med Decision Making Pertinent Labs and Imaging studies reviewed. (See chart for details) []47-year-old female presenting with 3 weeks of headache as well as some pain and numbness in her left arm and hand neurologically intact she has reproducible tenderness at the trapezius seems like radiculopathy she has a history of migraine she had a negative head CT in 2017 she has no objective neurologic findings she has no trauma I don't think we need repeat imaging at this time. It was better in the emergency trauma to the above treatment we did a screening EKG troponin and basic lab work out an abundance of caution this was normal Dragon Disclaimer Dragon Disclaimer This electronic medical record was generated, in whole or in part, using a voice recognition dictation system. Departure Departure Impression: Primary Impression: Headache Additional Impression: Radiculopathy Disposition: HOME, SELF-CARE Condition: STABLE Referrals: LYNN AVELAR MD (PCP) Problem Qualifiers LENA MCKEON MD Mar 29, 2018 15:11
[2018-03-29 15:13] LABS: ALBUMIN 3.1 g/dL (3.4-5.0); ALBUMIN/GLOBULIN RATIO 0.7 (1.0-1.7); TOTAL BILIRUBIN 0.3 mg/dL (0.2-1.0); TOTAL PROTEIN 7.3 g/dL (6.4-8.2)
[2018-03-29 15:18] VITALS: BP 137/80
== END 2018-03-29 15:43 | disposition home or self-care (01) ==
LOC: ER 14:07
DX: G43.909 Migraine, unspecified, not intractable, without status migrainosus (principal); M54.12 Radiculopathy, cervical region; I10 Essential (primary) hypertension; G89.29 Other chronic pain; Z90.710 Acquired absence of both cervix and uterus; Z98.51 Tubal ligation status
CPT/HCPCS: 36415; 80053; 81025; 82962; 84484; 85025; 93005; 96374; 96375; 99284; J0780; J1200; J1885

== ENCOUNTER → 2018-08-22 | Outpatient (CLI) | payer BC ==
[~2018-08-22] MED LIST changes: -PANT40TA3 PO; +PANT40TA77 PO
--- NOTE | 2018-08-22 10:47 | RAD ---
DATE: 08/22/2018. EXAM: MAMMO AGUSTIN SCREENING BILATERAL HISTORY: Routine screening. COMPARISON: Previous mammogram from 2014. This study was interpreted with the benefit of Computerized Aided Detection (CAD). FINDINGS: Breast Density: HETERO The breast parenchyma Is heterogeneously dense, which could reduce sensitivity of mammography. Breast parenchyma level C. The skin and nipples are within normal limits. There is a 5 mm round nodule in the right breast at 7:00 position approximately 5.5 cm from the nipple on cc view agustin image 10 of 45. 6 mm rounded asymmetry seen in the retroareolar left breast just posterior to the nipple best seen on image 21 of 42 of cc agustin view. No suspicious calcifications. IMPRESSION: Bilateral breast abnormalities as described above. BI-RADS CATEGORY: 0 INCOMPLETE: NEED ADDITIONAL IMAGING EVAULATION AND/OR PRIOR MAMMOGRAMS FOR COMPARISON RECOMMENDED FOLLOW-UP: ADD ADDITIONAL IMAGING. Focused Ultrasound of the bilateral breasts in the areas as described above. PQRS compliance statement: Patient information was entered into a reminder system with a target due date for the next mammogram. Mammography is a sensitive method for finding small breast cancers, but it does not detect them all and is not a substitute for careful clinical examination. A negative mammogram does not negate a clinically suspicious finding and should not result in delay in biopsying a clinically suspicious abnormality. "Our facility is accredited by the [employer] Mammography Program."
--- NOTE | 2018-08-22 11:25 | RAD ---
3 view cervical spine 08/22/2018 12:00 AM Indication: Cervical pain Comparison: None available Findings: Some straightening of the cervical spine is seen most likely relating to patient positioning or muscle spasm. No evidence of acute fracture or alignment abnormality. Vertebral body heights are preserved. Mild disc space narrowing and anterior bridging osteophytes are seen at C5-C6. The atlantoaxial articulation remains intact. No acute soft tissue changes are seen. Impression: Mild degenerative changes of the cervical spine without evidence of acute osseous abnormality. Electronically signed by: Jeffry Christie MD (08/22/2018 11:22 AM) [id number]
== END | disposition home or self-care (01) ==
LOC: MAMMO 09:29
PROVIDERS: ATTEND Internal Medicine
DX: Z12.31 Encounter for screening mammogram for malignant neoplasm of breast (principal); N63.13 Unspecified lump in the right breast, lower outer quadrant; M47.22 Other spondylosis with radiculopathy, cervical region; M25.78 Osteophyte, vertebrae; M48.02 Spinal stenosis, cervical region
CPT/HCPCS: 72040; 77063; 77067

== ENCOUNTER → 2018-09-16 | Outpatient (CLI) | payer BC ==
--- NOTE | 2018-09-17 10:17 | RAD ---
DATE: 09/16/2018 9:06 AM EXAM: DIGITAL DIAGNOSTIC RT, BREAST BILATERAL HISTORY: Further evaluation of abnormalities on prior screening mammogram, bilaterally COMPARISON: 08/22/2018, 07/10/2013 Bilateral spot compression CC and full field ML views of both breasts were obtained This study was interpreted with the benefit of Computerized Aided Detection (CAD). FINDINGS: Breast Density: HETERO The breast parenchyma Is heterogeneously dense, which could reduce sensitivity of mammography. Breast parenchyma level C The abnormalities in both breasts were slightly less conspicuous but likely seen on the spot compression and full field ML views. Therefore these abnormalities were further evaluated with ultrasound. ULTRASOUND FINDINGS: Targeted ultrasound of the bilateral breasts 7:00 position, 4 cm from the right nipple: A hypoechoic irregular mass is present measuring 0.8 x 0.2 x 0.8 cm. The left breast in the periareolar region was imaged with ultrasound. No suspicious mass was identified. IMPRESSION: Right breast mass for which biopsy is recommended. Left breast lesion was seen on mammogram only, follow-up is recommended. BI-RADS CATEGORY: 4 SUSPICIOUS ABNORMALITY- BIOPSY SHOULD BE CONSIDERED RECOMMENDED FOLLOW-UP: BIO BIOPSY RECOMMENDED right breast biopsy is recommended. 6 month follow-up 3-D CC and MLO mammographic views of the left breast are recommended. PQRS compliance statement: Patient information was entered into a reminder system with a target due date for the next mammogram. Mammography is a sensitive method for finding small breast cancers, but it does not detect them all and is not a substitute for careful clinical examination. A negative mammogram does not negate a clinically suspicious finding and should not result in delay in biopsying a clinically suspicious abnormality. "Our facility is accredited by the [employer] Mammography Program." MTDD
== END | disposition home or self-care (01) ==
LOC: MAMMO 09:01
PROVIDERS: ATTEND Internal Medicine
DX: N63.13 Unspecified lump in the right breast, lower outer quadrant (principal)
CPT/HCPCS: 76641; 77065; 77066

== ENCOUNTER 2018-11-08 08:18 | Day surgery (SDC) | payer BC ==
[~2018-11-08] VITALS: Ht 160 cm; Wt 79.4 kg
[~2018-11-08 08:18] MED LIST changes: +ESCITALOPRAM OX10 MG PO; +HYDROmorphone 2 MG/ML VIAL IV PRN; +IV RINGERS,LACTATED 1000ML 1,000 ML IV SCH; +LIDOCAINE 1% PF 2 ML VIAL. ID PRN; +LOSA-73 PO; +METHYLENE BLUE 0.5% 10ml AMPULE. IJ ONE; +MORPHINE SULFATE 2 MG/ML VIAL. IV PRN; +ONDANSETRON PF 4 MG/2 ML VIAL. IV PRN; +PROCHLORPERAZINE 10 MG/2 ML VIAL. IV PRN; +fentaNYL PF VIAL 100 MCG/2 ML VIAL IV PRN
[2018-11-08 08:22] LABS: BASO # 0.1 x10^3/uL (0.0-0.2); BASO % 1 % (0-3); EOS # 0.1 x10^3/uL (0.0-0.7); EOS % 1 % (0-3); HEMATOCRIT 38.8 % (36.0-47.0); LYMPH # 2.3 x10^3/uL (1.0-4.8); LYMPH % 22 % (24-48); MEAN CORPUSCULAR HEMOGLOBIN 29 pg (25-35); MEAN CORPUSCULAR HGB CONC 34 g/dL (31-37); MEAN CORPUSCULAR VOLUME 87 fL (79-100); MONO # 0.9 x10^3/uL (0.0-1.1); MONO % 8 % (0-9); NEUT # 7.2 x10^3/uL (1.8-7.7); NEUT % 68 % (31-73); PLATELET COUNT 229 x10^3/uL (140-400); RED BLOOD COUNT 4.45 x10^6/uL (3.50-5.40); RED CELL DISTRIBUTION WIDTH 14.7 % (11.5-14.5); WHITE BLOOD COUNT 10.5 x10^3/uL (4.0-11.0)
[2018-11-08 08:29] LABS: CALCIUM 9.3 mg/dL (8.5-10.1); CREATININE 0.9 mg/dL (0.6-1.0); GFR 80.9; POTASSIUM 3.7 mmol/L (3.5-5.1)
[2018-11-08 08:32] LABS: PROTHROMBIN TIME PATIENT 12.1 SEC (11.7-14.0)
[2018-11-08 08:35] LABS: ALBUMIN 3.2 g/dL (3.4-5.0); ALBUMIN/GLOBULIN RATIO 0.7 (1.0-1.7); TOTAL BILIRUBIN 0.2 mg/dL (0.2-1.0); TOTAL PROTEIN 7.5 g/dL (6.4-8.2)
[2018-11-08] MEDS ORDERED: LIDOCAINE 2% PF 5 ML VIAL. ONE (08:50)
[2018-11-08] MEDS ORDERED: MIDAZOLAM HCL/PF 2 MG/2 ML VIAL. ONE (08:50)
[2018-11-08] MEDS ORDERED: KETOROLAC 30 MG/ML VIAL. ONE (08:50)
[2018-11-08] MEDS ORDERED: PROPOFOL 20 ML IV ONE (08:50)
[2018-11-08] MEDS ORDERED: fentaNYL PF VIAL 100 MCG/2 ML VIAL ONE (08:50)
[2018-11-08] MEDS ORDERED: DEXAMETHASONE SOD PHOS 4 MG/ML VIAL ONE (08:50)
[2018-11-08] MEDS ORDERED: ONDANSETRON PF 4 MG/2 ML VIAL. ONE (08:50)
[2018-11-08] MEDS ORDERED: METHYLENE BLUE 0.5% 10ml AMPULE. ONE (09:04)
--- NOTE | 2018-11-08 11:40 | PDOC ---
SURGICAL PROGRESS NOTE Subjective No change in dictated history and physical. Vital Signs Vital Signs Date Time Temp Pulse Resp B/P (MAP) Pulse Ox O2 Delivery O2 Flow Rate FiO2 11/08/18 11:26 96.8 65 14 123/80 100 Simple Mask 8 96.8 Labs Laboratory Tests Test 11/08/18 08:10 White Blood Count 10.5 x10^3/uL (4.0-11.0) Red Blood Count 4.45 x10^6/uL (3.50-5.40) Hemoglobin 13.0 g/dL (12.0-15.5) Hematocrit 38.8 % (36.0-47.0) Mean Corpuscular Volume 87 fL (79-100) Mean Corpuscular Hemoglobin 29 pg (25-35) Mean Corpuscular Hemoglobin Concent 34 g/dL (31-37) Red Cell Distribution Width 14.7 % (11.5-14.5) Platelet Count 229 x10^3/uL (140-400) Neutrophils (%) (Auto) 68 % (31-73) Lymphocytes (%) (Auto) 22 % (24-48) Monocytes (%) (Auto) 8 % (0-9) Eosinophils (%) (Auto) 1 % (0-3) Basophils (%) (Auto) 1 % (0-3) Neutrophils # (Auto) 7.2 x10^3/uL (1.8-7.7) Lymphocytes # (Auto) 2.3 x10^3/uL (1.0-4.8) Monocytes # (Auto) 0.9 x10^3/uL (0.0-1.1) Eosinophils # (Auto) 0.1 x10^3/uL (0.0-0.7) Basophils # (Auto) 0.1 x10^3/uL (0.0-0.2) Prothrombin Time 12.1 SEC (11.7-14.0) Prothromb Time International Ratio 0.9 (0.8-1.1) Sodium Level 139 mmol/L (136-145) Potassium Level 3.7 mmol/L (3.5-5.1) Chloride Level 106 mmol/L (98-107) Carbon Dioxide Level 28 mmol/L (21-32) Anion Gap 5 (6-14) Blood Urea Nitrogen 15 mg/dL (7-20) Creatinine 0.9 mg/dL (0.6-1.0) Estimated GFR (Cockcroft-Gault) 80.9 BUN/Creatinine Ratio 17 (6-20) Glucose Level 84 mg/dL (70-99) Calcium Level 9.3 mg/dL (8.5-10.1) Total Bilirubin 0.2 mg/dL (0.2-1.0) Aspartate Amino Transf (AST/SGOT) 13 U/L (15-37) Alanine Aminotransferase (ALT/SGPT) 9 U/L (14-59) Alkaline Phosphatase 50 U/L (46-116) Total Protein 7.5 g/dL (6.4-8.2) Albumin 3.2 g/dL (3.4-5.0) Albumin/Globulin Ratio 0.7 (1.0-1.7) Amylase Level 71 U/L (25-115) Laboratory Tests Test 11/08/18 08:10 White Blood Count 10.5 x10^3/uL (4.0-11.0) Red Blood Count 4.45 x10^6/uL (3.50-5.40) Hemoglobin 13.0 g/dL (12.0-15.5) Hematocrit 38.8 % (36.0-47.0) Mean Corpuscular Volume 87 fL (79-100) Mean Corpuscular Hemoglobin 29 pg (25-35) Mean Corpuscular Hemoglobin Concent 34 g/dL (31-37) Red Cell Distribution Width 14.7 % (11.5-14.5) Platelet Count 229 x10^3/uL (140-400) Neutrophils (%) (Auto) 68 % (31-73) Lymphocytes (%) (Auto) 22 % (24-48) Monocytes (%) (Auto) 8 % (0-9) Eosinophils (%) (Auto) 1 % (0-3) Basophils (%) (Auto) 1 % (0-3) Neutrophils # (Auto) 7.2 x10^3/uL (1.8-7.7) Lymphocytes # (Auto) 2.3 x10^3/uL (1.0-4.8) Monocytes # (Auto) 0.9 x10^3/uL (0.0-1.1) Eosinophils # (Auto) 0.1 x10^3/uL (0.0-0.7) Basophils # (Auto) 0.1 x10^3/uL (0.0-0.2) Prothrombin Time 12.1 SEC (11.7-14.0) Prothromb Time International Ratio 0.9 (0.8-1.1) Sodium Level 139 mmol/L (136-145) Potassium Level 3.7 mmol/L (3.5-5.1) Chloride Level 106 mmol/L (98-107) Carbon Dioxide Level 28 mmol/L (21-32) Anion Gap 5 (6-14) Blood Urea Nitrogen 15 mg/dL (7-20) Creatinine 0.9 mg/dL (0.6-1.0) Estimated GFR (Cockcroft-Gault) 80.9 BUN/Creatinine Ratio 17 (6-20) Glucose Level 84 mg/dL (70-99) Calcium Level 9.3 mg/dL (8.5-10.1) Total Bilirubin 0.2 mg/dL (0.2-1.0) Aspartate Amino Transf (AST/SGOT) 13 U/L (15-37) Alanine Aminotransferase (ALT/SGPT) 9 U/L (14-59) Alkaline Phosphatase 50 U/L (46-116) Total Protein 7.5 g/dL (6.4-8.2) Albumin 3.2 g/dL (3.4-5.0) Albumin/Globulin Ratio 0.7 (1.0-1.7) Amylase Level 71 U/L (25-115) SEEMA CARVAJAL MD Nov 08, 2018 11:40
--- NOTE | 2018-11-08 11:41 | DISCH ---
DISCHARGE INSTRUCTIONS Condition on Discharge Condition on Discharge: Stable Activity After Discharge Activity Instructions for Disc: Activity as tolerated, Avoid exertion Bathing Instructions: Shower-keep dressing dry Lifting Instructions after Dis: Do not lift >10 pounds Exercise Instruction after Dis: Progress as tolerated Driving Instructions after Dis: No driving for 2 weeks Weight Bearing Status after Di: As tolerated Diet after Discharge Diet after Discharge: Regular Wound Incision Care Wound/Incision Care: Ice to area for comfort, May get incision wet, Other, see below Other wound/incision instructi: change dressin in 1-2 days or prn then put guaze inside bra without tape. Checks after Discharge Checks after discharge: Check your Temp as needed Contacting the DRSay after DC Call your doctor for: If your condition worsens Follow-Up Follow up with: Dr Carvajal in 3 weeks SEEMA CARVAJAL MD Nov 08, 2018 11:41
--- NOTE | 2018-11-08 11:44 | PDOC ---
SURGICAL PROGRESS NOTE Subjective OP Note: Surgeon.....................................Carvajal Pre-op Diagnosis........................Right breast mass Post-op Diagnosis......................Right breast mass Anesthesia................................General Procedure..................................Excision of right breast mass via needle localization Drains........................................None Fluids........................................See anesthesia sheet Blood loss..................................10cc Condition....................................Satisfactory Vital Signs Vital Signs Date Time Temp Pulse Resp B/P (MAP) Pulse Ox O2 Delivery O2 Flow Rate FiO2 11/08/18 11:26 96.8 65 14 123/80 100 Simple Mask 8 96.8 Labs Laboratory Tests Test 11/08/18 08:10 White Blood Count 10.5 x10^3/uL (4.0-11.0) Red Blood Count 4.45 x10^6/uL (3.50-5.40) Hemoglobin 13.0 g/dL (12.0-15.5) Hematocrit 38.8 % (36.0-47.0) Mean Corpuscular Volume 87 fL (79-100) Mean Corpuscular Hemoglobin 29 pg (25-35) Mean Corpuscular Hemoglobin Concent 34 g/dL (31-37) Red Cell Distribution Width 14.7 % (11.5-14.5) Platelet Count 229 x10^3/uL (140-400) Neutrophils (%) (Auto) 68 % (31-73) Lymphocytes (%) (Auto) 22 % (24-48) Monocytes (%) (Auto) 8 % (0-9) Eosinophils (%) (Auto) 1 % (0-3) Basophils (%) (Auto) 1 % (0-3) Neutrophils # (Auto) 7.2 x10^3/uL (1.8-7.7) Lymphocytes # (Auto) 2.3 x10^3/uL (1.0-4.8) Monocytes # (Auto) 0.9 x10^3/uL (0.0-1.1) Eosinophils # (Auto) 0.1 x10^3/uL (0.0-0.7) Basophils # (Auto) 0.1 x10^3/uL (0.0-0.2) Prothrombin Time 12.1 SEC (11.7-14.0) Prothromb Time International Ratio 0.9 (0.8-1.1) Sodium Level 139 mmol/L (136-145) Potassium Level 3.7 mmol/L (3.5-5.1) Chloride Level 106 mmol/L (98-107) Carbon Dioxide Level 28 mmol/L (21-32) Anion Gap 5 (6-14) Blood Urea Nitrogen 15 mg/dL (7-20) Creatinine 0.9 mg/dL (0.6-1.0) Estimated GFR (Cockcroft-Gault) 80.9 BUN/Creatinine Ratio 17 (6-20) Glucose Level 84 mg/dL (70-99) Calcium Level 9.3 mg/dL (8.5-10.1) Total Bilirubin 0.2 mg/dL (0.2-1.0) Aspartate Amino Transf (AST/SGOT) 13 U/L (15-37) Alanine Aminotransferase (ALT/SGPT) 9 U/L (14-59) Alkaline Phosphatase 50 U/L (46-116) Total Protein 7.5 g/dL (6.4-8.2) Albumin 3.2 g/dL (3.4-5.0) Albumin/Globulin Ratio 0.7 (1.0-1.7) Amylase Level 71 U/L (25-115) Laboratory Tests Test 11/08/18 08:10 White Blood Count 10.5 x10^3/uL (4.0-11.0) Red Blood Count 4.45 x10^6/uL (3.50-5.40) Hemoglobin 13.0 g/dL (12.0-15.5) Hematocrit 38.8 % (36.0-47.0) Mean Corpuscular Volume 87 fL (79-100) Mean Corpuscular Hemoglobin 29 pg (25-35) Mean Corpuscular Hemoglobin Concent 34 g/dL (31-37) Red Cell Distribution Width 14.7 % (11.5-14.5) Platelet Count 229 x10^3/uL (140-400) Neutrophils (%) (Auto) 68 % (31-73) Lymphocytes (%) (Auto) 22 % (24-48) Monocytes (%) (Auto) 8 % (0-9) Eosinophils (%) (Auto) 1 % (0-3) Basophils (%) (Auto) 1 % (0-3) Neutrophils # (Auto) 7.2 x10^3/uL (1.8-7.7) Lymphocytes # (Auto) 2.3 x10^3/uL (1.0-4.8) Monocytes # (Auto) 0.9 x10^3/uL (0.0-1.1) Eosinophils # (Auto) 0.1 x10^3/uL (0.0-0.7) Basophils # (Auto) 0.1 x10^3/uL (0.0-0.2) Prothrombin Time 12.1 SEC (11.7-14.0) Prothromb Time International Ratio 0.9 (0.8-1.1) Sodium Level 139 mmol/L (136-145) Potassium Level 3.7 mmol/L (3.5-5.1) Chloride Level 106 mmol/L (98-107) Carbon Dioxide Level 28 mmol/L (21-32) Anion Gap 5 (6-14) Blood Urea Nitrogen 15 mg/dL (7-20) Creatinine 0.9 mg/dL (0.6-1.0) Estimated GFR (Cockcroft-Gault) 80.9 BUN/Creatinine Ratio 17 (6-20) Glucose Level 84 mg/dL (70-99) Calcium Level 9.3 mg/dL (8.5-10.1) Total Bilirubin 0.2 mg/dL (0.2-1.0) Aspartate Amino Transf (AST/SGOT) 13 U/L (15-37) Alanine Aminotransferase (ALT/SGPT) 9 U/L (14-59) Alkaline Phosphatase 50 U/L (46-116) Total Protein 7.5 g/dL (6.4-8.2) Albumin 3.2 g/dL (3.4-5.0) Albumin/Globulin Ratio 0.7 (1.0-1.7) Amylase Level 71 U/L (25-115) SEEAM CARVAJAL MD Nov 08, 2018 11:44
[2018-11-08] MEDS ORDERED: HYDROcodone/APAP 5/325MG 1 TAB TABLET PO ONE (11:45)
[2018-11-08 11:58] VITALS: BP 119/69
--- NOTE | 2018-11-08 20:12 | RAD ---
Examination: US GUID NDL PLACE/ASPI/BX History: Right breast mass Comparison/Correlation: 09/16/2018 right breast ultrasound Findings: Risks and benefits of ultrasound-guided needle localization were discussed with the patient and informed consent was obtained. Cleansing with ChloraPrep was performed. Sterile drapes placed. Sterile probe cover utilized. Sterile gel utilized. Approximately 7 cc 1 percent lidocaine utilized. 7 cm needle wire combination was introduced into the right breast via a lateral approach into the mass lesion located 4 cm from the nipple at the 7:00 region. 0.1 cc of methylene blue was injected medial to the mass of interest. The wire was then deployed into the mass and the needle was removed. Impression: Successful wire localization of the right breast mass. Methylene blue injection. Electronically signed by: Santiago Tran MD (11/08/2018 8:09 PM) [facility]
--- NOTE | 2018-11-08 20:14 | RAD ---
DATE: 11/08/2018 EXAM: DIGITAL DIAGNOSTIC RT HISTORY: Right breast mass wire localized COMPARISON: 09/16/2018 This study was interpreted with the benefit of Computerized Aided Detection (CAD). Breast Density: HETERO The breast parenchyma is heterogenously dense, which could reduce sensitivity of mammography. Breast parenchyma level C. FINDINGS: Wire is noted within the right breast at the central retroareolar aspect approximately 4 cm from the nipple. IMPRESSION: Successful wire placement. BI-RADS CATEGORY: 4 SUSPICIOUS ABNORMALITY- BIOPSY SHOULD BE CONSIDERED RECOMMENDED FOLLOW-UP: SURG SURGICAL CONSULTATION PQRS compliance statement: Patient information was entered into a reminder system with a target due date for the next mammogram. Mammography is a sensitive method for finding small breast cancers, but it does not detect them all and is not a substitute for careful clinical examination. A negative mammogram does not negate a clinically suspicious finding and should not result in delay in biopsying a clinically suspicious abnormality. "Our facility is accredited by the [employer] Mammography Program."
--- NOTE | 2018-11-08 20:15 | RAD ---
Examination: TISSUE SPECIMEN MAMMOGRAM History: Right breast mass Comparison/Correlation: None Findings: Specimen radiograph was performed. The wire is identified within the specimen. The mass lesion is not definitely delineated but this finding is primarily seen on ultrasound imaging. Impression: Successful excision of the wire with surrounding breast tissue.
--- NOTE | 2018-11-09 01:46 | OP ---
DATE OF SURGERY: SURGEON: Mario Carvajal MD PREOPERATIVE DIAGNOSIS: Mass of the right breast found by sonography and mammography. POSTOPERATIVE DIAGNOSIS: Mass of the right breast found by sonography and mammography. ANESTHESIA: General. PROCEDURE: Excision of mass, right breast lower outer quadrant via needle localization. TECHNIQUE: With the patient's entire consent, understanding of the procedure, we had general anesthesia and she was properly prepped and draped in routine fashion. The incision was made, as the guidewire was in the lower outer quadrant of the right breast. In the lower portion, we then made an incision following the skin lines about an inch or so in length with a #15 blade and went through the skin with this. We then delivered the guidewire into the wound and then slowly grasping the guidewire and the tissue around it with a clamp, we used Gill retractors and then Hannah to hold the tissues away as we slowly dissected the tissue around the guidewire. Methylene blue had been placed and we did see it. We went completely around the guidewire and passed the methylene blue that had been injected to get the mass. The mass appeared to be at the end of the guidewire and you could palpate it. We then having removed this, small bleeders were cauterized and cautery was used for much of the dissection. The specimen was sent to the lab and the radiologist did say that he thought the lesion in question was in the specimen though he could not do mammograms, it showed up better on sonography. We then inspected the wound and the deeper structures and breast tissue was approximated in layers using 4-0 Vicryl, 3-0 Vicryl was used for the very deepest of the tissues. We then closed the skin using a subcuticular 5-0 Vicryl. Sterile dressing was applied and the procedure was terminated. Blood loss was probably less than 10 mL. No drains were used. Fluids given can be obtained from the anesthesia sheet. Condition of the patient is satisfactory as she has returned to the recovery room. MARIO CARVAJAL MD DR: SONU/bart JOB#: [id number] / [id number] ZONIA
--- NOTE | 2018-11-14 09:07 | PATHOLOGY ---
[facility] Accession Number: [id number] . 01 Material submitted: . breast - RIGHT BREAST MASS. Modifiers: right . 01 Clinical history: . Right breast mass . 02 Diagnosis: Breast mass, right, lumpectomy: - Tubular adenoma, 0.5 cm. - Margins of excision: Negative. . (Please see comment) . (SKM:fior; 11/13/2018) S 11/13/2018 1453 Local . 02 Comment: This case has also been reviewed by Dr. Sixto Echols M.D., who agrees with the diagnosis. (HONORIOM:fior; 11/13/2018) . 02 Electronically signed: . Mo Sun MD, Pathologist NPI- [id number] . 01 Gross description: . The specimen is received in formalin, labeled "Courtney Zamudio, right breast mass", is a 10 g, unoriented, fibroadipose tissue with a needle wire in situ measuring 5.9 x 4.0 x 0.8 cm. The specimen is inked black and serially sectioned from the protruding needle wire in situ 12 slices to reveal a 0.5 x 0.5 x 0.2 cm fairly circumscribed firm nodule that is 0.3 cm to the closest black ink in Slice 9. The parenchyma surrounding this nodule consists of purple dye. The remaining parenchyma is yellow lobulated and lopes-pink. The specimen is entirely submitted, contiguous sections in A1-A12. (A2-A6 = single slice bisected and A9 = nodule) Specimen excised at: 1051 on 11/08/18, placed in formalin at: 1110 on 11/08/18, removed from formalin at: 1850 on 10/06/19, formalin exposure: 56 hours) (SWS;11/08/2018) SHS/SHS 11/09/2018 0648 Local . 02 Pathologist provided ICD-10: D24.1 . 02 CPT . 010000 Specimen Comment: Report sent to Performed at: 01 [facility] [address] [place] [address] [id number] MD Case Huang MD Phone: [phone] Performed at: [address] [id number] MD Prince Briseno MD Phone: [phone]
== END 2018-11-08 12:24 | disposition home or self-care (01) ==
LOC: US 08:18
PROVIDERS: ATTEND Specialist
DX: D24.1 Benign neoplasm of right breast (principal); N63.10 Unspecified lump in the right breast, unspecified quadrant; I10 Essential (primary) hypertension; Z79.899 Other long term (current) drug therapy; Z79.01 Long term (current) use of anticoagulants
CPT/HCPCS: 19083; 19301; 36415; 77065; 80053; 82150; 85025; 85610; 88305; A7015; J0690; J1100; J1885; J2001; J2250; J2405; J2704; J3010; J7120; 76098; 76942

== ENCOUNTER 2019-10-28 18:40 | Emergency (ER) | payer BC ==
[~2019-10-28] VITALS: Ht 160 cm; Wt 84.1 kg
[~2019-10-28 18:40] MED LIST changes: -HYDROmorphone 2 MG/ML VIAL IV PRN; -IV RINGERS,LACTATED 1000ML 1,000 ML IV SCH; -LIDOCAINE 1% PF 2 ML VIAL. ID PRN; -METHYLENE BLUE 0.5% 10ml AMPULE. IJ ONE; -MORPHINE SULFATE 2 MG/ML VIAL. IV PRN; -ONDANSETRON PF 4 MG/2 ML VIAL. IV PRN; -PROCHLORPERAZINE 10 MG/2 ML VIAL. IV PRN; -fentaNYL PF VIAL 100 MCG/2 ML VIAL IV PRN
--- NOTE | 2019-10-28 19:20 | PHYS DOC ---
Past Medical History Past Medical History: Hypertension, Migraines, Seizure Additional Past Medical Histor: CHRONIC PAIN Past Surgical History: Hysterectomy, Tubal ligation Smoking Status: Never Smoker Alcohol Use: Occasionally Drug Use: Marijuana General Adult EDM: Chief Complaint: SEIZURE HPI: HPI: 49-year-old AA female past medical history significant for seizure disorder, hypertension, migraine headaches and chronic pain, presents to the ED with complaints of 2 seizures earlier today. Patient reports she had a seizure while she was at somewhere around 215 this afternoon, does not believe she hit her head or loss consciousness but states she did have urinary incontinence. Patient reports she had another seizure at home at 515 in a seated position. Patient called her mother to bring her to the hospital. Patient states she takes Depakote daily, but does not know her dosing. States she stopped upon last month for routine follow-up. No recent change in medications. Denies any noncompliance with medications. Denies any alcohol or drug use. Reports migraines are occurring more frequently. Cannot recall the last time she had a seizure. Review of Systems: Review of Systems: Constitutional: Denies fever or chills. [] Eyes: Denies change in visual acuity. [] HENT: Denies nasal congestion or sore throat. [] Respiratory: Denies cough or shortness of breath. [] Cardiovascular: Denies chest pain or edema. [] GI: Denies abdominal pain, nausea, vomiting, bloody stools or diarrhea. [] : Denies dysuria. [] Musculoskeletal: Denies back pain or joint pain. [] Integument: Denies rash. [] Neurologic: Denies headache, focal weakness or sensory changes. [] Endocrine: Denies polyuria or polydipsia. [] Lymphatic: Denies swollen glands. [] Psychiatric: Denies depression or anxiety. [] Heart Score: Risk Factors: Risk Factors: DM, Current or recent (<one month) smoker, HTN, HLP, family history of CAD, obesity. Risk Scores: Score 0 - 3: 2.5% MACE over next 6 weeks - Discharge Home Score 4 - 6: 20.3% MACE over next 6 weeks - Admit for Clinical Observation Score 7 - 10: 72.7% MACE over next 6 weeks - Early Invasive Strategies Allergies: Allergies: Allergies Coded Allergies Type Severity Reaction Last Updated Verified No Known Drug Allergies 11/08/18 No Physical Exam: PE: Constitutional: Well developed, well nourished, no acute distress, non-toxic appearance. [] HENT: Normocephalic, atraumatic, bilateral external ears normal, oropharynx moist, no oral exudates, nose normal, no tongue lacerations Eyes: PERRLA, EOMI, conjunctiva normal, no discharge. [] Neck: Normal range of motion, no tenderness, supple, no stridor. [] Cardiovascular:Heart rate regular rhythm, no murmur [] Lungs & Thorax: Bilateral breath sounds clear to auscultation [] Abdomen: Bowel sounds normal, soft, no tenderness, no masses, no pulsatile codey s. [] no urinary incontinence Skin: Warm, dry, no erythema, no rash. [] Back: No tenderness, Extremities: No tenderness, no cyanosis, no clubbing, ROM intact, no edema. [] Neurologic: Alert and oriented X 3, normal motor function, normal sensory function, no focal deficits noted. [] Psychologic: Affect normal, judgement normal, mood normal. [] EKG: EKG: [] Radiology/Procedures: Radiology/Procedures: []IMAGING REPORT Signed PATIENT: PEDRO LUIS DELATORRE ACCOUNT: [id number] : 1970 LOCATION: ER AGE: 49 SEX: F EXAM STATUS: REG ER ORD. PHYSICIAN: SAMMY ZHANG DO REASON: seizure PROCEDURE: CT HEAD WO CONTRAST PQRS Compliance Statement: One or more of the following individualized dose reduction techniques were utilized for this examination: 1. Automated exposure control 2. Adjustment of the mA and/or kV according to patient size 3. Use of iterative reconstruction technique CT HEAD WITHOUT CONTRAST History: Reason: seizure / Spl. Instructions: / History: Comparison: CT head without contrast, December 21, 2016. Procedure: Axial images are obtained of the head from the skull base through the vertex without IV contrast. Findings: The ventricles and sulci are normal for the patient's age. No mass-effect, midline shift, hemorrhage, extra-axial fluid collection, or obvious acute infarction is identified. Basilar cisterns are patent. Bone windows demonstrate no acute calvarial abnormality. The visualized paranasal sinuses are clear. Mastoid air cells are well aerated. IMPRESSION: No acute intracranial abnormality. Electronically signed by: Nils Boggs MD (10/28/2019 8:37 PM) [facility] DICTATED and SIGNED BY: NILS BOGGS MD DATE: 10/28/192036 Course & Med Decision Making: Course & Med Decision Making Pertinent Labs and Imaging studies reviewed. (See chart for details) Concern for 2 uncontrolled seizures, pt alert with dmc, no recurrence of seizures in ed. Depakote level in therapeutic range. Strict ed return precautions for recurrent seizures, head injury or confusion/ams. Encouraged urgent outpatient follow-up with PMD and neurology with Dr. Limon. Life- threatening processes were considered but are low suspicion at this time, given history and physical exam. Pt was educated on all prescription medications and adverse effects. All patient's questions were answered and pt was stable at time of discharge. Differential includes intracranial hemorrhage, diffuse axonal injury, spinal cord syndrome, unstable cervical fracture or SCIWORA, fractures or joint dislocations, neurovascular injuries, organ injury or laceration, pneumothorax, pneumoperitoneum, pericardial tamponade, unstable pelvic fracture, compartment syndrome, flail chest or respiratory distress, burn injury or asphyxiation I spoken with the patient and her caregivers. I explained the patient's condition, diagnoses and treatment plan based on the information available to me at this time. I have answered the patient and her caregiver's questions and addressed any concerns. The patient and her caregivers have a good understanding of patient's diagnosis, condition and treatment plan as can be expected at this point. Vital signs have been stable. Patient's condition is stable and appropriate for discharge from the emergency department. Patient will pursue further outpatient evaluation with primary care physician or other designated or consulting physician as outlined in the discharge instructions. The patient and/or caregivers are agreeable to this plan of care and follow-up instructions have been explained in detail. The patient and/or caregivers have received these instructions in written form and have expressed an understanding of the discharge instructions. The patient and/or caregivers are aware that any significant change of condition or worsening of symptoms should prompt immediate return to this or the closest emergency department or call to 911. [place] Disclaimer: Al[place] Disclaimer: This electronic medical record was generated, in whole or in part, using a voice recognition dictation system. Departure Departure Impression: Primary Impression: Seizure Additional Impression: Seizure disorder Disposition: HOME, SELF-CARE Condition: STABLE Referrals: LYNN AVELAR MD (PCP) Patient Instructions: Seizure, Adult Additional Instructions: Shaan Watson MD Primary Specialties Neurology [facility] Neurology Address: [address] [facility] [address] [address] EMERGENCY DEPARTMENT GENERAL DISCHARGE INSTRUCTIONS Thank you for coming to [facility] Emergency Department (ED) today and trusting us with you care. We trust that you had a positive experience in our Emergency Department. If you wish to speak to the department management, you may call the Director at [phone]. YOUR FOLLOW UP INSTRUCTIONS ARE FOLLOWS: 1. Do you have a private Doctor? If you do not have a private doctor, please ask for a resource list of physicians or clinics that may be able to assist you with follow up care. 2. The Emergency Physicain has interpreted your x-rays. The X-Ray specialist will also review them. If there is a change in the findings, you will be notified in 48 hours when at all possible. 3. A lab test or culture has been done, your results will be reviewed and you will be notified if you need a change in treatment. ADDITIONAL INSTRUCTIONS AND INFORMATION: 1. Your care today has been supervised by a physician who is specially trained in emergency care. Many problems require more than one evaluation for a complete diagnosis and treatment. We recommend that you schedule your follow up appointment as recommended to ensure complete treatment of you illness or injury. If you are unable to obtain follow up care and continue to have a problem, or if your condition worsens, we recommend that you return to the ED. 2. We are not able to safely determine your condition over the phone nor are we able to give sound medical advice over the phone. For these safety reasons, if you call for medical advice we will ask you to come to the ED for further evaluation. 3. If you have any questions regarding these discharge instructions please call the ED at [phone]. SAFETY INFORMATION: In the interest of safety, wellness, and injury prevention; we encourage you to wear your sealbelt, if you smoke; quite smoking, and we encourage family to use a protective helmet for bicycling and other sporting events that present an increased risk for head injury. IF YOUR SYMPTOMS WORSEN OR NEW SYMPTOMS DEVELOP, OR YOU HAVE CONCERNS ABOUT YOUR CONDITION; OR IF YOUR CONDITION WORSENS WHILE YOU ARE WAITING FOR YOUR FOLLOW UP APPOINTMENT; EITHER CONTACT YOUR PRIMARY CARE DOCTOR, THE PHYSICIAN WHOSE NAME AND NUMBER YOU WERE GIVEN, OR RETURN TO THE ED IMMEDIATELY. Justicifation of Admission Dx: Justifications for Admission: Justification of Admission Dx: N/A SAMMY MACDONALD DO Oct 28, 2019 19:20
[2019-10-28 19:51] LABS: BASO # 0.1 x10^3/uL (0.0-0.2); BASO % 1 % (0-3); EOS # 0.1 x10^3/uL (0.0-0.7); EOS % 1 % (0-3); HEMATOCRIT 38.5 % (36.0-47.0); HEMOGLOBIN 12.7 g/dL (12.0-15.5); LYMPH # 2.9 x10^3/uL (1.0-4.8); LYMPH % 19 % (24-48); MEAN CORPUSCULAR HEMOGLOBIN 29 pg (25-35); MEAN CORPUSCULAR HGB CONC 33 g/dL (31-37); MEAN CORPUSCULAR VOLUME 86 fL (79-100); MONO % 6 % (0-9); NEUT # 11.3 x10^3/uL (1.8-7.7); NEUT % 73 % (31-73); PLATELET COUNT 251 x10^3/uL (140-400); RED BLOOD COUNT 4.46 x10^6/uL (3.50-5.40); RED CELL DISTRIBUTION WIDTH 14.7 % (11.5-14.5); WHITE BLOOD COUNT 15.5 x10^3/uL (4.0-11.0)
[2019-10-28 20:01] LABS: CALCIUM 9.7 mg/dL (8.5-10.1); CREATININE 0.8 mg/dL (0.6-1.0); GFR 92.2; POTASSIUM 4.3 mmol/L (3.5-5.1)
[2019-10-28 20:08] LABS: ALBUMIN 3.5 g/dL (3.4-5.0); ALBUMIN/GLOBULIN RATIO 0.9 (1.0-1.7); TOTAL BILIRUBIN 0.2 mg/dL (0.2-1.0); TOTAL PROTEIN 7.5 g/dL (6.4-8.2)
--- NOTE | 2019-10-28 20:39 | RAD ---
RS Compliance Statement: One or more of the following individualized dose reduction techniques were utilized for this examination: 1. Automated exposure control 2. Adjustment of the mA and/or kV according to patient size 3. Use of iterative reconstruction technique CT HEAD WITHOUT CONTRAST History: Reason: seizure / Spl. Instructions: / History: Comparison: CT head without contrast, December 21, 2016. Procedure: Axial images are obtained of the head from the skull base through the vertex without IV contrast. Findings: The ventricles and sulci are normal for the patient's age. No mass-effect, midline shift, hemorrhage, extra-axial fluid collection, or obvious acute infarction is identified. Basilar cisterns are patent. Bone windows demonstrate no acute calvarial abnormality. The visualized paranasal sinuses are clear. Mastoid air cells are well aerated. IMPRESSION: No acute intracranial abnormality. Electronically signed by: Nils Boggs MD (10/28/2019 8:37 PM) [facility]
[2019-10-28 21:35] VITALS: BP 140/76
== END 2019-10-28 21:35 | disposition home or self-care (01) ==
LOC: ER 18:40
DX: G40.909 Epilepsy, unspecified, not intractable, without status epilepticus (principal); I10 Essential (primary) hypertension; G43.909 Migraine, unspecified, not intractable, without status migrainosus; G89.29 Other chronic pain; F12.90 Cannabis use, unspecified, uncomplicated; Z90.710 Acquired absence of both cervix and uterus; Z98.51 Tubal ligation status
CPT/HCPCS: 36415; 70450; 80053; 80164; 82550; 85025; 99284

== ENCOUNTER → 2020-04-07 | Outpatient (CLI) | payer BC ==
--- NOTE | 2020-04-07 08:52 | RAD ---
DATE: 04/07/2020 8:04 AM EXAM: MAMMO AGUSTIN DIAG BILAT HISTORY: Diffuse bilateral breast pain, right greater than left. History of excisional biopsy right breast yielding tubular adenoma. COMPARISON: 08/22/2018 Bilateral CC and MLO views of the breasts were performed. Bilateral breast tomosynthesis was performed in CC and MLO projections. This study was interpreted with the benefit of Computerized Aided Detection (CAD). FINDINGS: Breast Density: HETERO The breast parenchyma Is heterogeneously dense, which could reduce sensitivity of mammography. Breast parenchyma level C No suspicious masses, microcalcifications or architectural distortion is present to suggest malignancy in either breast. The visualized axillae are unremarkable. IMPRESSION: No mammographic evidence of malignancy. BI-RADS CATEGORY: 1 NEGATIVE RECOMMENDED FOLLOW-UP: 12M 12 MONTH FOLLOW-UP Annual screening mammography is recommended, unless clinically indicated sooner based on symptoms or change in physical exam. PQRS compliance statement: Patient information was entered into a reminder system with a target due date for the next mammogram. Mammography is a sensitive method for finding small breast cancers, but it does not detect them all and is not a substitute for careful clinical examination. A negative mammogram does not negate a clinically suspicious finding and should not result in delay in biopsying a clinically suspicious abnormality. "Our facility is accredited by the [employer] Mammography Program."
== END ==
LOC: MAMMO 07:54
PROVIDERS: ATTEND Internal Medicine
DX: N64.4 Mastodynia (principal)
CPT/HCPCS: 77066; G0279; 77062

== ENCOUNTER 2020-07-28 06:51 | Day surgery (SDC) | payer BC ==
--- NOTE | 2020-07-27 15:42 | PREOP HP ---
DATE OF SERVICE: 07/28/2020 CHIEF COMPLAINT AND HISTORY OF PRESENT ILLNESS: This patient is a 50-year-old female who is a 3, para 3, all full term normal deliveries and she has had a subtotal hysterectomy about 7 years ago and she is complaining of vaginal bleeding at this time and was referred by her family physician, Dr. Rees for vaginal bleeding. She also has epilepsy and she is on Dilantin 3 tablets a day. The patient is scheduled at this time for a diagnostic D and C to rule out cancer of the cervix. ALLERGIES: None known. PERSONAL HISTORY: No smoking, not on drugs. Not alcoholic. FAMILY HISTORY: Reveals she has 2 brothers and 2 sisters. REVIEW OF SYSTEMS: Essentially negative. PHYSICAL EXAMINATION: VITAL SIGNS: Being stable. She weighs 181 pounds, blood pressure 120/80. HEAD, EYES, NOSE AND THROAT: Within normal limits. LUNGS: Clear. HEART: Sounds regular sinus rhythm. BREASTS: No masses are felt. PELVIC: Shows external genitalia being normal. Cervix was hypertrophied. No adnexal masses are palpable. Pap smear done in the office has remained normal. DIAGNOSIS: Postmenopausal bleeding. PLAN: D and C, biopsy of the cervix. JEYSON/ANDREW DR: Sridevi TID: [id number]
[~2020-07-28] VITALS: Ht 160 cm; Wt 82.0 kg
[~2020-07-28 06:51] MED LIST changes: +HYDROmorphone 2 MG/ML VIAL IVP PRN; +IV RINGERS,LACTATED 1000ML 1,000 ML IV SCH; +MORPHINE SULFATE 2 MG/ML VIAL. IVP PRN; +PROCHLORPERAZINE 10 MG/2 ML VIAL. IVP PRN; +ceFAZolin SODIUM IV Push 1 GM VIAL. IVP PRN; +fentaNYL PF VIAL 100 MCG/2 ML VIAL IVP PRN
[2020-07-28] MEDS ORDERED: miSOPROStol 200 MCG TABLET. ONE (07:06)
[2020-07-28] MEDS ORDERED: OXYTOCIN 10 UNIT/ML VIAL. ONE (07:06)
[2020-07-28] MEDS ORDERED: ceFAZolin SODIUM IV Push 1 GM VIAL. IVP ONE (07:30)
[2020-07-28 07:41] VITALS: BP 138/79
[2020-07-28 08:17] LABS: BASO # 0.1 x10^3/uL (0.0-0.2); BASO % 1 % (0-3); EOS # 0.1 x10^3/uL (0.0-0.7); EOS % 1 % (0-3); HEMATOCRIT 38.9 % (36.0-47.0); LYMPH # 3.3 x10^3/uL (1.0-4.8); LYMPH % 27 % (24-48); MEAN CORPUSCULAR HEMOGLOBIN 30 pg (25-35); MEAN CORPUSCULAR HGB CONC 34 g/dL (31-37); MEAN CORPUSCULAR VOLUME 89 fL (79-100); MONO # 1.4 x10^3/uL (0.0-1.1); MONO % 12 % (0-9); NEUT # 7.2 x10^3/uL (1.8-7.7); NEUT % 59 % (31-73); PLATELET COUNT 214 x10^3/uL (140-400); RED BLOOD COUNT 4.36 x10^6/uL (3.50-5.40); RED CELL DISTRIBUTION WIDTH 13.6 % (11.5-14.5); WHITE BLOOD COUNT 12.2 x10^3/uL (4.0-11.0)
[2020-07-28] MEDS ORDERED: LIDOCAINE 2% PF 5 ML VIAL. ONE (08:29)
[2020-07-28] MEDS ORDERED: ONDANSETRON PF 4 MG/2 ML VIAL. ONE (08:29)
[2020-07-28] MEDS ORDERED: fentaNYL PF VIAL 100 MCG/2 ML VIAL ONE ×2 (08:29→09:22)
[2020-07-28] MEDS ORDERED: PROPOFOL 10 MG/ML (20ML) VIAL. IV ONE (08:29)
[2020-07-28] MEDS ORDERED: DEXAMETHASONE SOD PHOS 4 MG/ML VIAL ONE (08:29)
[2020-07-28] MEDS ORDERED: FERRIC SUBSULFATE 8 ML SOL.W.APPL TP ONE (08:44)
[2020-07-28] MEDS ORDERED: SEVOFLURANE 31 TO 60 MINUTES. IH ONE (08:59)
--- NOTE | 2020-07-28 09:25 | PDOC ---
GENERAL General: 50yrs old lady scheduled for Postmenopausal Bleeding. Patient has Hypertrophied Cervix. VITAL SIGNS Vital Signs/I&O: Vital Signs Date Time Temp Pulse Resp B/P (MAP) Pulse Ox O2 Delivery O2 Flow Rate FiO2 07/28/20 09:06 Mask 6 07/28/20 09:06 97.8 80 16 135/83 98 97.8 ALLERGIES Allergies: Allergies Coded Allergies Type Severity Reaction Last Updated Verified No Known Drug Allergies 07/28/20 No MEDS Medications: Current Medications Medications (Trade) Dose Ordered Sig/[place] Route PRN Reason Start Time Stop Time Status Last Admin Dose Admin Ringer's Solution 1,000 ml @ 30 mls/hr Q24H IV 07/28/20 06:00 07/28/20 17:59 07/28/20 07:00 Cefazolin Sodium (Ancef) 1 gm 1X PREOP PRN IVP PRIOR TO PROCEDURE 07/28/20 06:00 07/28/20 08:24 LAB Lab: Laboratory Tests Test 07/28/20 07:50 White Blood Count 12.2 x10^3/uL (4.0-11.0) H Red Blood Count 4.36 x10^6/uL (3.50-5.40) Hemoglobin 13.0 g/dL (12.0-15.5) Hematocrit 38.9 % (36.0-47.0) Mean Corpuscular Volume 89 fL (79-100) Mean Corpuscular Hemoglobin 30 pg (25-35) Mean Corpuscular Hemoglobin Concent 34 g/dL (31-37) Red Cell Distribution Width 13.6 % (11.5-14.5) Platelet Count 214 x10^3/uL (140-400) Neutrophils (%) (Auto) 59 % (31-73) Lymphocytes (%) (Auto) 27 % (24-48) Monocytes (%) (Auto) 12 % (0-9) H Eosinophils (%) (Auto) 1 % (0-3) Basophils (%) (Auto) 1 % (0-3) Neutrophils # (Auto) 7.2 x10^3/uL (1.8-7.7) Lymphocytes # (Auto) 3.3 x10^3/uL (1.0-4.8) Monocytes # (Auto) 1.4 x10^3/uL (0.0-1.1) H Eosinophils # (Auto) 0.1 x10^3/uL (0.0-0.7) Basophils # (Auto) 0.1 x10^3/uL (0.0-0.2) Laboratory Tests 07/28/20 07:50 ASSESSMENT & PLAN A&P Under GA D&C done. Also Punch Biopsy of Cervix done. EBL 20cc. Justifications for Admission Other Justification JO JACOME MD Jul 28, 2020 09:25
[2020-07-28] MEDS ORDERED: IBUP-1027 PO (09:38)
[2020-07-28] MEDS ORDERED: IBUPROFEN 200 MG TABLET. PO ONE (09:45)
--- NOTE | 2020-07-28 10:00 | OP ---
DATE OF SURGERY: 07/28/2020 PREOPERATIVE DIAGNOSIS: Postmenopausal bleeding. POSTOPERATIVE DIAGNOSIS: Postmenopausal bleeding, to rule out carcinoma of the cervix. DESCRIPTION OF PROCEDURE: The patient was taken to the operating room under general anesthesia, she was placed in the dorsal lithotomy position. Perineum was prepped and draped in the usual manner. Weighted speculum inserted into the posterior vaginal wall. Anterior lip of the cervix held with a tenaculum and the cervix was dilated and endocervical curettings were obtained with a curette and the curettings were subjected for pathological examination. A small punch biopsy of the posterior lip of the cervix was done and there was oozing from that area of the biopsy and Monsel solution was applied and also 0 chromic catgut sutures, 2 stitches applied on the cervix to stop the oozing. Then, the patient was sent to the recovery room in good condition. No complications encountered at the time of the procedure. ESTIMATED BLOOD LOSS: About 20 mL. POSTOPERATIVE CONDITION: Stable. She will be followed in the office in 2 weeks for further care and treatment. GABRIELA DR: Sridevi TID: [id number]
[2020-07-28 10:05] VITALS: BP 109/69
--- NOTE | 2020-08-02 14:23 | PATHOLOGY ---
[facility] Accession Number: [id number] . 01 Material submitted: . PART A: cervix - CURETTAGE OF CERVIX PART B: cervix - PUNCH BIOPSY OF CERVIX . 01 Clinical history: . VAGINAL BLEEDING DX D AND C POST MENOPAUSAL BLEEDING . 02 Diagnosis: A. 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 - Blood and mucus containing few segments of benign squamous epithelium and segments of endocervical mucosa showing focal acute and chronic inflammation. . B. Cervix punch biopsy: - Mild chronic cervicitis with focal squamous metaplasia and focal cystic dilatation of endocervical glands. . (JPM:mmjasmyne/pit; 07/30/2020) [facility] 08/02/2020 1317 Local . 02 Comment: Within the cervix curettage, there are few minute segments of high-grade dysplastic squamous epithelium showing moderate to severe dysplasia (EVER II-III). There is no high-grade dysplasia identified within the punch biopsy of cervix. (JPM:mindy; 08/02/2020) . 02 Electronically signed: . Shaan Munguia MD, Pathologist NPI- [id number] . 01 Gross description: . A. Received in formalin labeled "Everett,Tarnshia 930 cervix". It is additionally labeled on the requisition as, "curettage of cervix". Received are multiple congested pink lopes soft tissue fragments admixed with mucus measuring in aggregate 1.5 x 1.0 x 0.2 cm. Specimen is entirely submitted in cassette A1. . B. Received in formalin labeled "E[place]rett, Tarn[place]ia and punch biopsy of cervix". Received is a navas-lopes soft tissue fragment measuring 1.0 x 0.8 x 0.3 cm. Sectioning reveals firm navas-lopes cut surface. The specimen is entirely submitted in cassette B1.(J; 07/29/2020) J/J 07/30/2020 1514 Local . 02 Pathologist provided ICD-10: N87.1, N72 . 02 CPT . 553061, 601163 Specimen Comment: Report sent to / DR AVELAR Performed at: 01 [facility] [address] [place] [address] [address], [place] [id number] MD Jem Lopes MD Phone: [phone] Performed at: 02 [facility] [address] [place] [id number] MD Shaan Munguia MD Phone: [phone]
== END 2020-07-28 11:10 | disposition home or self-care (01) ==
LOC: SURG 06:51
PROVIDERS: ATTEND Obstetrics & Gynecology
DX: N95.0 Postmenopausal bleeding (principal); N87.1 Moderate cervical dysplasia; N72 Inflammatory disease of cervix uteri; I10 Essential (primary) hypertension; E66.9 Obesity, unspecified; Z72.89 Other problems related to lifestyle; Z79.899 Other long term (current) drug therapy; Z98.890 Other specified postprocedural states
CPT/HCPCS: 36415; 58120; 85025; A4930; J0690; J0780; J1100; J2405; J2704; J3010; J2590

== ENCOUNTER 2020-09-01 07:34 | Day surgery (SDC) | payer BC ==
[~2020-09-01] VITALS: Ht 160 cm; Wt 84.0 kg
[~2020-09-01 07:34] MED LIST changes: +DIVA500T17 PO; +IBUP-1027 PO; +MORPHINE SULFATE 2 MG/ML INJ. IVP PRN; -MORPHINE SULFATE 2 MG/ML VIAL. IVP PRN; -ceFAZolin SODIUM IV Push 1 GM VIAL. IVP PRN
[2020-09-01 08:56] LABS: BASO # 0.1 x10^3/uL (0.0-0.2); BASO % 1 % (0-3); EOS # 0.1 x10^3/uL (0.0-0.7); EOS % 1 % (0-3); HEMATOCRIT 38.8 % (36.0-47.0); HEMOGLOBIN 12.8 g/dL (12.0-15.5); LYMPH # 2.8 x10^3/uL (1.0-4.8); LYMPH % 30 % (24-48); MEAN CORPUSCULAR HEMOGLOBIN 30 pg (25-35); MEAN CORPUSCULAR HGB CONC 33 g/dL (31-37); MEAN CORPUSCULAR VOLUME 91 fL (79-100); MONO # 0.8 x10^3/uL (0.0-1.1); MONO % 9 % (0-9); NEUT # 5.3 x10^3/uL (1.8-7.7); NEUT % 59 % (31-73); PLATELET COUNT 206 x10^3/uL (140-400); RED BLOOD COUNT 4.28 x10^6/uL (3.50-5.40); RED CELL DISTRIBUTION WIDTH 13.8 % (11.5-14.5); WHITE BLOOD COUNT 9.1 x10^3/uL (4.0-11.0)
[2020-09-01] MEDS ORDERED: LIDOCAINE 2% PF 5 ML VIAL. ONE (09:37)
[2020-09-01] MEDS ORDERED: PROPOFOL 50 ML IV ONE (09:37)
[2020-09-01] MEDS ORDERED: KETOROLAC 30 MG/ML VIAL. ONE (09:39)
[2020-09-01] MEDS ORDERED: DEXAMETHASONE SOD PHOS 4 MG/ML VIAL ONE (09:43)
[2020-09-01] MEDS ORDERED: ONDANSETRON PF 4 MG/2 ML VIAL. ONE (09:43)
[2020-09-01] MEDS ORDERED: fentaNYL PF VIAL 100 MCG/2 ML VIAL ONE (09:47)
[2020-09-01] MEDS ORDERED: FERRIC SUBSULFATE 8 ML SOL.W.APPL TP ONE (09:49)
--- NOTE | 2020-09-01 10:01 | PDOC ---
GENERAL General: 50yrs old lady here for Laser treatment of Cervix VITAL SIGNS Vital Signs/I&O: Vital Signs Date Time Temp Pulse Resp B/P (MAP) Pulse Ox O2 Delivery O2 Flow Rate FiO2 09/01/20 08:27 97.7 78 15 126/64 97 Room Air 97.7 ALLERGIES Allergies: Allergies Coded Allergies Type Severity Reaction Last Updated Verified No Known Drug Allergies 08/31/20 No LAB Lab: Laboratory Tests Test 09/01/20 08:30 White Blood Count 9.1 x10^3/uL (4.0-11.0) Red Blood Count 4.28 x10^6/uL (3.50-5.40) Hemoglobin 12.8 g/dL (12.0-15.5) Hematocrit 38.8 % (36.0-47.0) Mean Corpuscular Volume 91 fL (79-100) Mean Corpuscular Hemoglobin 30 pg (25-35) Mean Corpuscular Hemoglobin Concent 33 g/dL (31-37) Red Cell Distribution Width 13.8 % (11.5-14.5) Platelet Count 206 x10^3/uL (140-400) Neutrophils (%) (Auto) 59 % (31-73) Lymphocytes (%) (Auto) 30 % (24-48) Monocytes (%) (Auto) 9 % (0-9) Eosinophils (%) (Auto) 1 % (0-3) Basophils (%) (Auto) 1 % (0-3) Neutrophils # (Auto) 5.3 x10^3/uL (1.8-7.7) Lymphocytes # (Auto) 2.8 x10^3/uL (1.0-4.8) Monocytes # (Auto) 0.8 x10^3/uL (0.0-1.1) Eosinophils # (Auto) 0.1 x10^3/uL (0.0-0.7) Basophils # (Auto) 0.1 x10^3/uL (0.0-0.2) Laboratory Tests 09/01/20 08:30 ASSESSMENT & PLAN A&P under GA Laser treatment of Cervix done. EBL 5cc Justifications for Admission Other Justification JO JACOME MD Sep 01, 2020 10:01
[2020-09-01] MEDS ORDERED: SEVOFLURANE 31 TO 60 MINUTES. IH ONE (10:07)
[2020-09-01 10:38] VITALS: BP 104/59
--- NOTE | 2020-09-01 11:57 | OP ---
DATE OF SURGERY: 09/01/2020 PREOPERATIVE DIAGNOSES: Postmenopausal bleeding, cervical dysplasia. POSTOPERATIVE DIAGNOSES: Postmenopausal bleeding, cervical dysplasia. OPERATION PERFORMED: Laser treatment of the cervix. OPERATIVE PROCEDURE: The patient was taken to the operating room. Under general anesthesia, she was placed in the dorsal lithotomy position. Perineum was prepped and draped in the usual manner. A self-retaining speculum was inserted into the vaginal area for visualization of the cervix and using Zeiss colposcope, laser treatment was started all around the cervix using CO2 laser. With 18 august of continuous CO2 laser, treatment was done all around the anterior as well as the posterior lip of the cervix, around the external os and after the laser treatment, the speculum was removed. Monsel solution was applied on the surface of the cervix for small oozing and after this, the patient was sent to the recovery room in good condition. No complications encountered at the time of the procedure. Estimated blood loss about 5 mL. Postoperative condition was table. She will be followed in the office in 2 weeks for further care and treatment. GERMAIN/RANDEE DR: Sridevi TID: [id number]
== END 2020-09-01 11:11 | disposition home or self-care (01) ==
LOC: SURG 07:34
PROVIDERS: ATTEND Obstetrics & Gynecology
DX: N95.0 Postmenopausal bleeding (principal); N87.9 Dysplasia of cervix uteri, unspecified; I10 Essential (primary) hypertension; K21.9 Gastro-esophageal reflux disease without esophagitis; Z90.710 Acquired absence of both cervix and uterus; Z98.51 Tubal ligation status; Z98.890 Other specified postprocedural states; Z79.899 Other long term (current) drug therapy; Z72.89 Other problems related to lifestyle
CPT/HCPCS: 36415; 56501; 85025; A4930; J0690; J1100; J1885; J2405; J2704; J3010

== ENCOUNTER → 2021-02-22 | Outpatient (CLI) | payer BC ==
[~2021-02-22] MED LIST changes: +CYCL10TA19 PO; -CYCL10TA2 PO; -HYDROmorphone 2 MG/ML VIAL IVP PRN; -IV RINGERS,LACTATED 1000ML 1,000 ML IV SCH; -MORPHINE SULFATE 2 MG/ML INJ. IVP PRN; -PROCHLORPERAZINE 10 MG/2 ML VIAL. IVP PRN; -fentaNYL PF VIAL 100 MCG/2 ML VIAL IVP PRN
--- NOTE | 2021-02-22 15:25 | RAD ---
PROCEDURE: US BREAST RT, MG DIGITAL UNILAT DIAGNOSTIC MAMMO WITH AGUSTIN HISTORY: The patient is 50 years old and is seen for Reason: PALPABLE NODULE RT AXILLA / Spl. Instruc tions: / History: . Covid vaccine within the last 3 months. COMPARISON: April 07, 2020 TECHNIQUE: CC and MLO views of right breast were obtained. Images were processed by the [email or web address] computer-aided detection system. Ultrasound evaluation of the right axilla DENSITY: The breast parenchyma is heterogeneously dense. This may lower the sensitivity of mammograph y. FINDINGS: Right mammogram: No developing mass, suspicious calcifications or architectural distortion. Benign-a ppearing calcifications, unchanged. Right ultrasound: Small benign-appearing right axillary lymph nodes. IMPRESSION: 1. Small benign-appearing lymph nodes within the right axilla in the region of the patient's palpabl e concern. Recommend annual screening mammograms per [place] [employer] guidelines. BI-RADS category 2 Benign Patient entered into a reminder system for annual screening mammogram. Electronically signed by: Bob Moore DO (02/22/2021 3:23 PM) [email or web address]
--- NOTE | 2021-02-22 15:25 | RAD ---
PROCEDURE: US BREAST RT, MG DIGITAL UNILAT DIAGNOSTIC MAMMO WITH AGUSTIN HISTORY: The patient is 50 years old and is seen for Reason: PALPABLE NODULE RT AXILLA / Spl. Instruc tions: / History: . Covid vaccine within the last 3 months. COMPARISON: April 07, 2020 TECHNIQUE: CC and MLO views of right breast were obtained. Images were processed by the [email or web address] computer-aided detection system. Ultrasound evaluation of the right axilla DENSITY: The breast parenchyma is heterogeneously dense. This may lower the sensitivity of mammograph y. FINDINGS: Right mammogram: No developing mass, suspicious calcifications or architectural distortion. Benign-a ppearing calcifications, unchanged. Right ultrasound: Small benign-appearing right axillary lymph nodes. IMPRESSION: 1. Small benign-appearing lymph nodes within the right axilla in the region of the patient's palpabl e concern. Recommend annual screening mammograms per [place] [employer] guidelines. BI-RADS category 2 Benign Patient entered into a reminder system for annual screening mammogram. Electronically signed by: Bob Moore DO (02/22/2021 3:23 PM) [email or web address]
== END ==
LOC: MAMMO 14:31
PROVIDERS: ATTEND Internal Medicine
DX: R92.1 Mammographic calcification found on diagnostic imaging of breast (principal); R92.2 Inconclusive mammogram
CPT/HCPCS: 76641; 77065; G0279; 77061

== ENCOUNTER 2021-06-20 06:28 | Emergency (ER) | payer BC ==
[~2021-06-20] VITALS: Ht 160 cm; Wt 84.1 kg
[2021-06-20] MEDS ORDERED: KETOROLAC 15 MG/ML VIAL. IM ONE (07:15)
--- NOTE | 2021-06-20 07:15 | PHYS DOC ---
Past Medical History Past Medical History: Hypertension, Migraines, Seizure Additional Past Medical Histor: CHRONIC PAIN, seizures Past Surgical History: No Surgical History Smoking Status: Never Smoker Alcohol Use: Occasionally Drug Use: Marijuana General Adult EDM: Chief Complaint: UPPER EXTREMITY PAIN HPI: HPI: Patient is a 51 year old female with past medical history of seizure disorder as well as right trapezius pain and axillary pain, was seen in the emergency department and her primary care physician for right axillary and trapezius pain 1 year ago, patient states that no diagnosis was made, she did not follow-up with her primary care physician after the emergency department visit. Patient states that right axillary and right trapezius pain has not dissipated since 1 year ago. It slightly waxes and wanes but it is constantly there. She has not done physical therapy, she was told that it would have to do with muscles but no formal diagnosis made. Otherwise patient's symptoms have not changed. They are not exacerbated or alleviated by exercise, they are exacerbated by movement at times. The pain is positional. There is tenderness in her muscles. Otherwise she is doing well and has no other symptoms. She has not tried any medication for this. Review of Systems: Review of Systems: Constitutional: Denies fever or chills. [] Eyes: Denies change in visual acuity. [] HENT: Denies nasal congestion or sore throat. [] Respiratory: Denies cough or shortness of breath. [] Cardiovascular: Denies chest pain or edema. [] GI: Denies abdominal pain, nausea, vomiting, bloody stools or diarrhea. [] : Denies dysuria. [] Musculoskeletal: Denies back pain, right trapezius and axillary tenderness [] Integument: Denies rash. [] Neurologic: Denies headache, focal weakness or sensory changes. [] Endocrine: Denies polyuria or polydipsia. [] Lymphatic: Denies swollen glands. [] Psychiatric: Denies depression or anxiety. [] Heart Score: C/O Chest Pain: No Risk Factors: Risk Factors: DM, Current or recent (<one month) smoker, HTN, HLP, family history of CAD, obesity. Risk Scores: Score 0 - 3: 2.5% MACE over next 6 weeks - Discharge Home Score 4 - 6: 20.3% MACE over next 6 weeks - Admit for Clinical Observation Score 7 - 10: 72.7% MACE over next 6 weeks - Early Invasive Strategies Current Medications: Current Medications Medications (Trade) Dose Ordered Sig/[place] Start Time Stop Time Status Last Admin Dose Admin Ketorolac Tromethamine (Toradol 15mg Vial) 15 mg 1X ONCE 06/20/21 07:15 06/20/21 07:16 Allergies: Allergies: Allergies Coded Allergies Type Severity Reaction Last Updated Verified No Known Drug Allergies 06/20/21 No Physical Exam: PE: Constitutional: Well developed, well nourished, no acute distress, non-toxic ap pearance. [] HENT: Normocephalic, atraumatic, bilateral external ears normal, oropharynx moist, no oral exudates, nose normal. [] Eyes: PERRLA, EOMI, conjunctiva normal, no discharge. [] Neck: Normal range of motion, no tenderness, supple, no stridor. [] Cardiovascular:Heart rate regular rhythm, no murmur [] Lungs & Thorax: Bilateral breath sounds clear to auscultation [] Abdomen: Bowel sounds normal, soft, no tenderness, no masses, no pulsatile masses. [] Skin: Warm, dry, no erythema, no rash. [] Back: Positive right trapezius, right neck, right axillary tenderness. No lymphadenopathy. [] Extremities: No tenderness, no cyanosis, no clubbing, ROM intact, no edema. [] Neurologic: Alert and oriented X 3, normal motor function, normal sensory function, no focal deficits noted. [] Psychologic: Affect normal, judgement normal, mood normal. [] Current Patient Data: Vital Signs: Vital Signs Date Time Temp Pulse Resp B/P (MAP) Pulse Ox O2 Delivery O2 Flow Rate FiO2 06/20/21 06:39 98.2 79 16 146/88 (107) 98 Room Air 98.2 EKG: EKG: Normal sinus rhythm [] Radiology/Procedures: Radiology/Procedures: Right shoulder x-ray within normal limits [] Impression: Right trapezius musculoskeletal pain, right axillary musculoskeletal pain. Course & Med Decision Making: Course & Med Decision Making Pertinent Labs and Imaging studies reviewed. (See chart for details) 51-year-old female presents with right trapezius and right axillary pain, this has lasted for more than a year. She has not followed with her primary care physician, she has not tried any medication for this. I gave her 1 dose of 50 mg Toradol which reduced the pain significantly. EKG was taken which was in normal sinus rhythm, x-ray was also taken which was normal and showed normal alignment. Patient was given a prescription for anti-inflammatories to take for the next 2 weeks. Patient should follow-up with her primary care physician in the next 3 to 5 days. Otherwise patient is doing well, reviewed this with the patient, patient agrees with the plan of care. All questions answered, ER return precautions were given. Dragon Disclaimer: Dragon Disclaimer: This electronic medical record was generated, in whole or in part, using a voice recognition dictation system. Departure Departure Referrals: LYNN AVELAR MD (PCP) Scripts Meloxicam (MELOXICAM) 7.5 Mg Tablet 1 TAB PO DAILY for 30 Days, #30 TAB 0 Refills Prov: BLAIR BREWER MD 06/20/21 BLAIR BREWER MD June 20, 2021 07:15
--- NOTE | 2021-06-20 07:48 | RAD ---
Exam Date: 06/20/2021 7:31 AM XR SHOULDER_RIGHT 2+ VIEWS Indication: Pain. Reason: right arm/shoulder pain, predominately in armpit / Spl. Instructions: / H istory: . FINDINGS/ IMPRESSION: COMPARISON: September 07, 2017 No acute fracture or dislocation. Mild degenerative changes are noted. Alignment is maintained. Th e soft tissues are within normal limits. Electronically signed by: Vargas Camacho MD (06/20/2021 7:45 AM) [id number]
[2021-06-20] MEDS ORDERED: MELO7.5T29 PO (08:16)
[2021-06-20 08:31] VITALS: BP 137/77
--- NOTE | 2021-06-21 07:46 | EKG ---
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
== END 2021-06-20 08:37 | disposition home or self-care (01) ==
LOC: ER 06:28
DX: M79.621 Pain in right upper arm (principal); G40.909 Epilepsy, unspecified, not intractable, without status epilepticus; G43.909 Migraine, unspecified, not intractable, without status migrainosus; G89.29 Other chronic pain
CPT/HCPCS: 73030; 93005; 96372; 99285; J1885